=== PATIENT | male | born 1955 | race Caucasian/White ===

== ENCOUNTER → 2018-05-21 09:03 | Outpatient (CLI) | payer BC ==
--- NOTE | 2018-05-22 11:19 | ST ---
PATIENT:ADILENE RHOADES MEDICAL RECORD: [id number] SEX: M LOCATION:[facility] ORDER #: ADMISSION DATE: 05/21/18 AGE OF PATIENT: 63 REFERRING PHYSICIAN: INTERPRETING PHYSICIAN: SHERRI DIEGO MD DATE OF SERVICE: 05/21/2018 PROCEDURE: Nuclear stress test. INDICATIONS: Angina, shortness of breath, hypertension. He was exercised on standard Lexiscan protocol with 32 mCi of sestamibi injected at peak stress, 11 mCi used previously for rest images. FINDINGS: Gated SPECT reveals a preserved ejection fraction of 54%. However, there is decreased thickening and brightening throughout the inferior segments. SPECT imaging Cardiolite was used as myocardial perfusion agent. There is a fixed perfusion defect inferiorly. This includes the basal, mid, apical, and inferior segments. There is reversibility, however, in the lateral segments as well as basolateral and mid lateral segments. OVERALL IMPRESSION: This is an abnormal nuclear stress test, fixed perfusion defect inferiorly, reversibility laterally, does suggest the presence of hemodynamically significant coronary artery disease. We will proceed with coronary angiography as followup study. TRANSINT:[id number] Voice Confirmation ID: [id number] DOCUMENT ID: [id number] SHERRI DIEGO MD at 1119 CC: [id number] DICTATION DATE: 05/21/18 1611 SPA COORDINATOR: 05/22/18 0131 DEP CLI 05/21/18 [address] [id number] [place] [address]
== END | disposition home or self-care (01) ==
LOC: D.HCCARDIO 09:00
DX: R06.02 Shortness of breath (principal)

== ENCOUNTER → 2018-06-05 14:52 | Outpatient (CLI) | payer BC ==
[2018-06-01 08:18] VITALS: BMI 35.0
[~2018-06-05 14:52] MED LIST: ALBUTEROL SULF8.5 GM INH; BAYER CHEWABLE81 MG PO; BUTALB-APAP-CA1 EACH PO; CARAFATE1 G PO; CELEXA20 MG PO; CO Q-10400 MG PO; COLACE100 MG PO; COZAAR100 MG PO; CYCLOBENZAPRINE10 MG PO; CYMBALTA30 MG PO; FISH OIL 1,0001 CA1 PO; HCTZ25 MG PO; HYDROCODON-ACE1 EA10 PO; LIDODERM 5 %1 PATCH TRANSDERM; LIPITOR10 MG PO; LIPITOR20 MG PO; LYRICA50 MG PO; METOPROLOL TART25 MG PO; MOBIC7.5 MG PO; PLAVIX75 MG PO; PLEXUS BIO CLEANSE; PREVACID30 MG PO; TESTOSTERONE IM; ULTRAM50 MG PO; VITAMIN D5000 UNIT PO; VOLTAREN100 GM TOPICAL; [UNRECOGNIZED DRUG - OTHER]
== END | disposition home or self-care (01) ==
LOC: D.US 14:52
PROVIDERS: ATTEND Internal Medicine Cardiovascular Disease
DX: I65.29 Occlusion and stenosis of unspecified carotid artery (principal); I73.9 Peripheral vascular disease, unspecified

== ENCOUNTER 2018-06-12 07:30 | Inpatient (IN) | payer BC ==
[2018-06-08 14:18] LABS: BASOPHILS 0.5 % (0-2); EOSINOPHILS 5.3 % (0-7); HEMATOCRIT 47.8 % (42.0-54.0); HEMOGLOBIN 16.6 g/dL (13.5-17.5); IMMATURE GRANULOCYTES 0.3 % (0-5); LYMPHOCYTES 29.8 % (15-50); MCH 34.2 pg (26.0-34.0); MCHC 34.7 g/dL (31.0-37.0); MCV 98.4 fL (80.0-100.0); MONOCYTES 8.5 % (2-11); NEUTROPHILS 55.6 % (40-80); PLATELET COUNT 263 10x3/uL (130-400); RBC 4.86 10x6/uL (4.20-6.10); RDW 13.4 % (11.5-14.5); WBC 7.6 10x3/uL (4.8-10.8)
[2018-06-08 14:22] LABS: APPEARANCE CLEAR (CLEAR); COLOR YELLOW (YELLOW)
[2018-06-08 14:23] LABS: BILIRUBIN NEGATIVE (NEGATIVE); GLUCOSE NEGATIVE (NEGATIVE); KETONE NEGATIVE (NEGATIVE); NITRITE NEGATIVE (NEGATIVE); PROTEIN NEGATIVE (NEGATIVE); UROBILINOGEN NORMAL (NORMAL)
[2018-06-08 14:24] LABS: APTT 29.1 SECONDS (22.8-39.4); INR 1.05 (0.85-1.17); PROTIME 13.2 SECONDS (11.6-15.0)
[2018-06-08 14:31] LABS: ALBUMIN 3.4 g/dL (3.4-5.0); ANION GAP 11.3 mmol/L (8-16); BILIRUBIN - TOTAL 1.08 mg/dL (0.2-1.3); CALCIUM 8.5 mg/dL (8.5-10.1); CARBON DIOXIDE 30.2 mmol/L (21.0-32.0); CREATININE - SERUM 1.5 mg/dL (0.6-1.3); POTASSIUM - SERUM 4.5 mmol/L (3.5-5.1); PROTEIN - SERUM 7.1 g/dL (6.4-8.2); T4 THYROXIN - FREE 0.83 ng/dL (0.76-1.46); THYROID STIMULATING HORMONE 2.82 uIU/mL (0.36-3.74); URIC ACID 6.1 mg/dL (2.6-7.2)
[~2018-06-12] VITALS: Ht 172.7 cm; Wt 104.3 kg
[2018-06-14] VITALS (31 sets, daily range): BP systolic 105–141; BP diastolic 53–78; Ht 172.7 cm; Wt 104.3 kg
[2018-06-15] VITALS (26 sets, daily range): BP systolic 97–144; BP diastolic 57–84
[2018-06-15 06:24] LABS: HEMATOCRIT 39.7 % (42.0-54.0); HEMOGLOBIN 13.7 g/dL (13.5-17.5); MCH 33.6 pg (26.0-34.0); MCHC 34.5 g/dL (31.0-37.0); MCV 97.3 fL (80.0-100.0); MEAN PLATELET VOLUME 8.7 fL (7.4-10.4); RBC 4.08 10x6/uL (4.20-6.10); RDW 13.1 % (11.5-14.5); WBC 13.2 10x3/uL (4.8-10.8)
[2018-06-15 06:43] LABS: ALBUMIN 2.8 g/dL (3.4-5.0); ANION GAP 10.6 mmol/L (8-16); BILIRUBIN - TOTAL 1.78 mg/dL (0.2-1.3); CALCIUM 7.3 mg/dL (8.5-10.1); CARBON DIOXIDE 29.7 mmol/L (21.0-32.0); CREATININE - SERUM 1.3 mg/dL (0.6-1.3); POTASSIUM - SERUM 4.3 mmol/L (3.5-5.1); PROTEIN - SERUM 5.6 g/dL (6.4-8.2)
--- NOTE | 2018-06-15 15:09 | OP ---
PATIENT NAME: ADILENE RHOADES MEDICAL RECORD: [id number] :57 LOCATION:D.CVI D.CV05 ADMISSION DATE:06/14/18 SURGEON: PENG RUIZ MD DATE OF OPERATION: 06/14/2018 SURGEON: Peng Ruiz MD ANATOMICAL EMBALMER: Chuy Castillo. OPERATION PERFORMED: 1. Coronary artery bypass graft times 3 (left internal mammary artery to LAD, reverse saphenous vein graft from aorta to obtuse marginal, aorta to posterior descending artery). 2. Endoscopic saphenous vein harvest. PREOPERATIVE DIAGNOSIS: Coronary artery disease. POSTOPERATIVE DIAGNOSIS: Coronary artery disease. ANESTHESIA: General endotracheal anesthesia. ESTIMATED BLOOD LOSS: Total cardiopulmonary bypass with Cell Saver retransfusion. COMPLICATIONS: None. SPECIMENS: Left internal mammary artery lymph node for frozen section revealed reactive lymph node. CONDITION: Stable. DISPOSITION: CV ICU. OPERATIVE FINDINGS: 1. Transesophageal echocardiography with trace mitral regurgitation, 1+ pulmonary and tricuspid regurgitation, good contractility, moderate LVH, unchanged after cardiopulmonary bypass. 2. Good quality greater saphenous vein harvested endoscopically from the left leg due to history of right leg DVT. 3. Good quality internal mammary artery, somewhat thin walled without a well-developed muscularis layer, LAD 1.5 mm with severe disease, anastomosis and plaque. 4. Severe disease all vessels with anastomosis and plaque. 5. Obtuse marginal 2.0 mm with severe disease. 6. Posterior descending artery, 1.25 mm vessel. The right coronary artery was calcified throughout and no other sites for anastomosis despite this small posterior descending vessel. PROCEDURE INDICATION: Coronary artery disease. PROCEDURE IN DETAIL: The patient was brought to the operating suite. General anesthesia obtained. The patient was prepped and draped. Greater saphenous vein harvested in the left lower extremity utilizing endoscopic technique. Side branches were divided with electrocautery. The vessel was ligated proximally and distally removed. Side branches were tied. Leg was irrigated and closed in OPERATIVE REPORT [id number] ADILENE RHOADES 2 layers and wrapped in elastic wrap. Median sternotomy incision was made. Subcutaneous tissue was divided with electrocautery. Sternum was divided with a saw. Left hemisternum was elevated. Left pleural cavity was entered. Left internal mammary vein was taken as a pedicle graft. Sternal retractor was placed. Pericardium was opened. Heparin was given. Aorta was cannulated. Dual stage venous cannula was inserted. Activated clotting time was appropriately elevated. The internal mammary was clipped distally and made ready for anastomosis. The patient was placed on cardiopulmonary bypass. Sites for distal anastomoses were selected. The antegrade cardioplegic cannula was inserted. The patient's temperature was allowed to drift downward. Crossclamp was placed. Cardioplegia given antegrade and this was repeated at 15 to 20 minute intervals including down the completed vein grafts. Distal anastomoses were performed in standard technique. Proximal anastomosis with single cross-clamp technique. Aortic root de-aired. Crossclamp removed. Proximal anastomosis tied down. Vein graft was deaired and flow restored. The patient required several defibrillations and additional lidocaine 100 mg. Eventually, a sinus rhythm, was tachycardic, received some esmolol prior to weaning from cardiopulmonary bypass, but was stable. With the patient fully rewarmed, weaned from cardiopulmonary bypass and was stable. The patient was decannulated. The aortic annulus that was oversewn with pledgeted Prolene suture. Protamine was given. Thorough irrigation was undertaken. All grafts lay appropriately and hemostasis was ensured. Good Doppler signals were noted in the vein graft and in the internal mammary artery. Drains were placed in the mediastinum and left pleural cavity. Ventricular pacing wires were placed. Pericardial fat was loosely reapproximated in the midline. Left internal mammary harvest site was inspected for bleeding. Left chest evacuated and irrigated. Sternum was closed with wires. Fascia was closed, subcutaneous tissues was closed, skin was closed. Dermabond was placed. Needle and sponge counts were reported as correct and the patient was taken to ICU in stable condition. TRANSINT:[id number] Voice Confirmation ID: [id number] DOCUMENT ID: [id number] PENG RUIZ MD at 1509 CC: APOLINAR CUTLER MD and SHERRI DIEGO [id number] DICTATION DATE: 06/14/18 1336 PARACHUTE MARKER: 06/14/18 1618 ADM IN [place] [address] [place] [address]
[2018-06-16] VITALS (24 sets, daily range): BP systolic 90–116; BP diastolic 52–78
[2018-06-16 05:58] LABS: HEMATOCRIT 37.8 % (42.0-54.0); MCH 33.9 pg (26.0-34.0); MCHC 34.4 g/dL (31.0-37.0); MCV 98.4 fL (80.0-100.0); RBC 3.84 10x6/uL (4.20-6.10); RDW 13.1 % (11.5-14.5); WBC 13.1 10x3/uL (4.8-10.8)
[2018-06-16 06:15] LABS: ALBUMIN 2.7 g/dL (3.4-5.0); ANION GAP 11.5 mmol/L (8-16); BILIRUBIN - TOTAL 1.59 mg/dL (0.2-1.3); CALCIUM 7.6 mg/dL (8.5-10.1); CARBON DIOXIDE 27.8 mmol/L (21.0-32.0); CREATININE - SERUM 1.2 mg/dL (0.6-1.3); POTASSIUM - SERUM 4.3 mmol/L (3.5-5.1); PROTEIN - SERUM 5.7 g/dL (6.4-8.2)
[2018-06-17] VITALS (17 sets, daily range): BP systolic 97–122; BP diastolic 51–74
[2018-06-17 05:47] LABS: HEMATOCRIT 37.1 % (42.0-54.0); HEMOGLOBIN 12.8 g/dL (13.5-17.5); MCH 33.9 pg (26.0-34.0); MCHC 34.5 g/dL (31.0-37.0); MCV 98.1 fL (80.0-100.0); MEAN PLATELET VOLUME 8.9 fL (7.4-10.4); RBC 3.78 10x6/uL (4.20-6.10); RDW 12.8 % (11.5-14.5); WBC 12.1 10x3/uL (4.8-10.8)
[2018-06-17 06:33] LABS: ALBUMIN 2.7 g/dL (3.4-5.0); ANION GAP 13.7 mmol/L (8-16); BILIRUBIN - TOTAL 1.43 mg/dL (0.2-1.3); CARBON DIOXIDE 25.5 mmol/L (21.0-32.0); CREATININE - SERUM 1.2 mg/dL (0.6-1.3); POTASSIUM - SERUM 4.2 mmol/L (3.5-5.1); PROTEIN - SERUM 6.2 g/dL (6.4-8.2)
--- NOTE | 2018-06-17 10:39 | TEE ---
PATIENT:ADILENE RHOADES MEDICAL RECORD: [id number] LOCATION:[place] [address] AGE OF PATIENT: 63 ADMISSION DATE: 06/14/18 SEX: M REFERRING PHYSICIAN: INTERPRETING PHYSICIAN: SHIV GUAMAN MD TRANSESOPHAGEAL ECHOCARDIOGRAM Date: 06/14/18 ESTELA CHARGE Y INDICATIONS: CABG PREMEDICATIONS: PATIENT'S RESPONSE PROCEDURE DOPPLER MEASUREMENTS: LVIT LA PA RA LVOT RVOT Asc. Ao AV Gradient Peak AV Mean AV Area MV Gradient Peak MV Mean MV Area INTERPRETATION: LVd: 4.3 cm LVs: 2.7 cm Doppler: 2-D: COLOR FLOW DOPPLER NORMAL SALINE STUDY: MISCELLANOUS: DIAGNOSIS: PLAN: Knitting Machine Operator Helper:Arias Pereira Aqua Ammonia Operator: Arias OSEGUERA COMMENTS: DATE OF SERVICE: 06/14/2018 INTRAOPERATIVE ESTELA REPORT IN CABG Preoperatively, LV appears to be mildly globally hypo with LV function of 45% to 50%. Postoperatively, wall motion now appears to be entirely normal with good LV function of 55%. TRANSESOPHAGEAL ECHOCARDIOGRAM REPORT [id number] ADILENE RHOADES TRANSINT:[id number] Voice Confirmation ID: [id number] DOCUMENT ID: [id number] at 1039 CC: [id number] DICTATION DATE: 06/14/18 1514 FISH BIN TENDER: 06/14/18 1947 ADM IN [facility] [address] [place] [address]
[2018-06-17 22:02] LABS: MAGNESIUM - SERUM 2.2 mg/dL (1.8-2.4); POTASSIUM - SERUM 3.8 mmol/L (3.5-5.1)
[2018-06-18] VITALS (22 sets, daily range): BP systolic 92–126; BP diastolic 47–81
[2018-06-18 05:49] LABS: HEMATOCRIT 33.6 % (42.0-54.0); HEMOGLOBIN 11.5 g/dL (13.5-17.5); MCH 33.6 pg (26.0-34.0); MCHC 34.2 g/dL (31.0-37.0); MCV 98.2 fL (80.0-100.0); MEAN PLATELET VOLUME 9.2 fL (7.4-10.4); RBC 3.42 10x6/uL (4.20-6.10); RDW 13.2 % (11.5-14.5); WBC 8.7 10x3/uL (4.8-10.8)
[2018-06-18 05:59] LABS: ALBUMIN 2.3 g/dL (3.4-5.0); ANION GAP 11.3 mmol/L (8-16); BILIRUBIN - TOTAL 0.74 mg/dL (0.2-1.3); CALCIUM 7.9 mg/dL (8.5-10.1); CREATININE - SERUM 1.2 mg/dL (0.6-1.3); POTASSIUM - SERUM 4.3 mmol/L (3.5-5.1); PROTEIN - SERUM 5.8 g/dL (6.4-8.2)
--- NOTE | 2018-06-18 18:01 | MORECARE ---
CASE MANAGEMENT DISCHARGE SUMMARY PATIENT: ADILENE RHOADES UNIT: [id number] ADM DATE: 06/14/18 AGE: 63 : 57 SEX: M ROOM/BED: D[facility] AUTHOR: ATTILA,DOC PHYSICIAN: REFERRING PHYSICIAN: ZEB DELVALLE MD DATE OF SERVICE: 06/18/18 Discharge Plan Patient Name: ADILENE RHOADES Facility: [facility]:[place] : 1955 Planned Disposition: Home Anticipated Discharge Date: Discharge Date: Expected LOS: Initial Reviewer: [email or web address] Initial Review Date: 06/18/2018 Generated: 06/18/18 7:00 pm Comments DCP- Discharge Planning Updated by [email or web address]: Brandie Snell on 06/18/18 4:[address] Patient Name: ADILENE RHOADES Admission Status: Elective Accout number: [id number] Admission Date: 06-14-2018 : 1955 Admission Diagnosis:ATHSCL HEART DISEASE OF [place] CORONARY ARTERY W/O ANG Attending: ZEB DELVALLE Current LOS: 4 Anticipated DC Date: Planned Disposition: Home Primary Insurance: [employer] [facility] Discharge Planning Comments: CM met with patient and spouse at bedside. Patient states he lives at home with is spouse (JHOANA). He plans on returning to their home upon discharge. He states he feels safe at his home. He states he will have family drive him home upon discharge. He is requesting a walker for discharge. CM will continue to follow and assist as needed with discharge planning / needs. Risk Reduction Counselor: Brandie Snell DCPIA - Discharge Planning Initial Assessment Updated by [email or web address]: Brandie Snell on 06/18/18 5:57 pm * Is the patient Alert and Oriented? Yes * How many steps to enter\exit or inside your home? * PCP Tauth * Pharmacy [facility] [place] * Preadmission Environment Home with Family * ADLs Independent * Other Equipment LEG BRACE * List name and contact numbers for known caregivers / representatives who currently or will assist patient after discharge: JHOANA RHOADES - - [phone] * Verbal permission to speak to the caregivers and representatives has been obtained from the patient. N/A * Community resources currently utilized None * Additional services required to return to the preadmission environment? No * Can the patient safely return to the preadmission environment? Yes * Has this patient been hospitalized within the prior 30 days at any hospital? No Patient Name: ADILENE RHOADES Page [id number] at 1801 All edits/amendments must be made on the electronic document DICTATION DATE: 06/18/181799 RELAY ASSOCIATE: HARSHIL 06/18/181799 RPT#: [id number] DC DATE: STATUS: ADM IN [facility] [address] [place] [address] END OF REPORT
[2018-06-19] VITALS (24 sets, daily range): BP systolic 96–126; BP diastolic 47–69
[2018-06-19 07:01] LABS: HEMATOCRIT 34.3 % (42.0-54.0); HEMOGLOBIN 11.6 g/dL (13.5-17.5); MCH 33.5 pg (26.0-34.0); MCHC 33.8 g/dL (31.0-37.0); MCV 99.1 fL (80.0-100.0); MEAN PLATELET VOLUME 9.2 fL (7.4-10.4); RBC 3.46 10x6/uL (4.20-6.10); RDW 13.3 % (11.5-14.5); WBC 7.7 10x3/uL (4.8-10.8)
[2018-06-19 07:04] LABS: ALBUMIN 2.4 g/dL (3.4-5.0); BILIRUBIN - TOTAL 0.87 mg/dL (0.2-1.3); CALCIUM 8.2 mg/dL (8.5-10.1); CARBON DIOXIDE 25.8 mmol/L (21.0-32.0); CREATININE - SERUM 1.2 mg/dL (0.6-1.3); POTASSIUM - SERUM 3.8 mmol/L (3.5-5.1); PROTEIN - SERUM 6.2 g/dL (6.4-8.2)
[2018-06-20] VITALS (10 sets, daily range): BP systolic 89–123; BP diastolic 48–68
[2018-06-20] MEDS ORDERED: AMIODARONE HCL200 MG PO (15:37)
[2018-06-20] MEDS ORDERED: PLAVIX75 MG PO (15:37)
--- NOTE | 2018-06-20 17:44 | MORECARE ---
CASE MANAGEMENT DISCHARGE SUMMARY PATIENT: ADILENE RHOADES UNIT: [id number] ADM DATE: 06/14/18 AGE: 63 : 57 SEX: M ROOM/BED: D.[facility] AUTHOR: ATTILADOC PHYSICIAN: REFERRING PHYSICIAN: ZEB DELVALLE MD DATE OF SERVICE: 06/20/18 Discharge Plan Patient Name: ADILENE RHOADES Facility: [facility]:[place] : 1955 Planned Disposition: Home Anticipated Discharge Date: Discharge Date: Expected LOS: Initial Reviewer: [id number] Initial Review Date: 06/18/2018 Generated: 06/20/18 6:43 pm Comments DCP- Discharge Planning Updated by [email or web address]: Brandie Snell on 06/20/18 4:[address] Patient Name: ADILENE RHOADES Encounter No: [id number] : 1955 Primary Insurance: Total [employer] myhomemove Anticipated DC Date: Planned Disposition: Home External Planned Provider: : REBEKA EXPLAINED AND SERVED 06/20/18 @ 1725. CM WILL CALL OFFICE IN AM TO CHECK ON ORDER FOR WALKER. DCP follow-up note: Patient and family in agreement with discharge plan. No changes to plan. Case management will follow and assist as needed. Brandie Snell DCP- Discharge Planning Updated by [email or web address]: Brandie Snell on 06/18/18 4:[address] Patient Name: ADILENE RHOADES Admission Status: Elective Accout number: [id number] Admission Date: 06-14-2018 : 1955 Admission Diagnosis:ATHSCL HEART DISEASE OF [place] CORONARY ARTERY W/O ANG Attending: ZEB DELVALLE Current LOS: 4 Anticipated DC Date: Planned Disposition: Home Primary Insurance: [employer] Discharge Planning Comments: CM met with patient and spouse at bedside. Patient states he lives at home with is spouse (JHOANA). He plans on returning to their home upon discharge. He states he feels safe at his home. He states he will have family drive him home upon discharge. He is requesting a walker for discharge. CM will continue to follow and assist as needed with discharge planning / needs. Supervisor Shaving And Splitting: Brandie Snell DCPIA - Discharge Planning Initial Assessment Updated by [email or web address]: Brandie Snell on 06/18/18 5:57 pm * Is the patient Alert and Oriented? Yes * How many steps to enter\exit or inside your home? * PCP Tauth * Pharmacy [facility] [place] * Preadmission Environment Home with Family * ADLs Independent * Other Equipment LEG BRACE * List name and contact numbers for known caregivers / representatives who currently or will assist patient after discharge: JHOANA RHOADES - - [phone] * Verbal permission to speak to the caregivers and representatives has been obtained from the patient. N/A * Community resources currently utilized None * Additional services required to return to the preadmission environment? No * Can the patient safely return to the preadmission environment? Yes * Has this patient been hospitalized within the prior 30 days at any hospital? No Coverage Notice Reviewer: [id number] - Brandie Snell Notice Issued Date-Time: 06/20/2018 17:25 Notice Type: IM Discharge Notice Notice Delivered To: Patient Relationship to Patient: Self Rod Straightener Name: Delivery Method: HAND - Hand Delivered Sarah Days: Prior Verbal Notification: Recipient Understood Notice: Yes Recipient Signature: Yes Med Rec Note Co-signed by Attending: Coverage Notice Comment: Last DP export: 06/18/18 5:00 p Patient Name: ADILENE RHOADES Page 21241 at 1744 All edits/amendments must be made on the electronic document DICTATION DATE: 06/20/181742 RUBBER GOODS CUTTER FINISHER: HARSHIL 06/20/181742 RPT#: [id number] DC DATE: STATUS: ADM IN [facility] [address] [place] [address] END OF REPORT
--- NOTE | 2018-06-21 09:01 | MORECARE ---
CASE MANAGEMENT DISCHARGE SUMMARY PATIENT: ADILENE RHOADES UNIT: [id number] ADM DATE: 06/14/18 AGE: 63 : 57 SEX: M [facility] AUTHOR: ATTILA,DOC PHYSICIAN: REFERRING PHYSICIAN: ZEB DELVALLE MD DATE OF SERVICE: 06/21/18 Discharge Plan Patient Name: ADILENE RHOADES Facility: [facility]:[place] : 1955 Planned Disposition: Home Anticipated Discharge Date: Discharge Date: 06/20/2018 Expected LOS: Initial Reviewer: [id number] Initial Review Date: 06/18/2018 Generated: 06/21/18 10:01 am Comments DCP- Discharge Planning Updated by [email or web address]: Brandie Snell on 06/20/18 4:[address] Patient Name: ADILENE RHOADES Encounter No: [id number] : 1955 Primary Insurance: [employer] O[employer] Anticipated DC Date: Planned Disposition: Home External Planned Provider: : IMM EXPLAINED AND SERVED 06/20/18 @ 1725. CM WILL CALL OFFICE IN AM TO CHECK ON ORDER FOR WALKER. DCP follow-up note: Patient and family in agreement with discharge plan. No changes to plan. Case management will follow and assist as needed. Brandie Snell DCP- Discharge Planning Updated by [id number]: Brandie Snell on 06/18/18 4:[address] Patient Name: ADILENE RHOADES Admission Status: Elective Accout number: [id number] Admission Date: 06-14-2018 : 1955 Admission Diagnosis:ATHSCL HEART DISEASE OF [place] CORONARY ARTERY W/O ANG Attending: ZEB DELVALLE Current LOS: 4 Anticipated DC Date: Planned Disposition: Home Primary Insurance: [employer] Odim[employer] Discharge Planning Comments: CM met with patient and spouse at bedside. Patient states he lives at home with is spouse (JHOANA). He plans on returning to their home upon discharge. He states he feels safe at his home. He states he will have family drive him home upon discharge. He is requesting a walker for discharge. CM will continue to follow and assist as needed with discharge planning / needs. Drafter Civil Engineering: Brandie Snell DCPIA - Discharge Planning Initial Assessment Updated by [email or web address]: Brandie Snell on 06/18/18 5:57 pm * Is the patient Alert and Oriented? Yes * How many steps to enter\exit or inside your home? * PCP Tauth * Pharmacy [facility] [place] * Preadmission Environment Home with Family * ADLs Independent * Other Equipment LEG BRACE * List name and contact numbers for known caregivers / representatives who currently or will assist patient after discharge: JHOANA RHOADES - - [phone] * Verbal permission to speak to the caregivers and representatives has been obtained from the patient. N/A * Community resources currently utilized None * Additional services required to return to the preadmission environment? No * Can the patient safely return to the preadmission environment? Yes * Has this patient been hospitalized within the prior 30 days at any hospital? No Coverage Notice Reviewer: [id number] - Brandie Snell Notice Issued Date-Time: 06/20/2018 17:25 Notice Type: IM Discharge Notice Notice Delivered To: Patient Relationship to Patient: Self Egg And Spice Mixer Name: Delivery Method: HAND - Hand Delivered Sarah Days: Prior Verbal Notification: Recipient Understood Notice: Yes Recipient Signature: Yes Med Rec Note Co-signed by Attending: Coverage Notice Comment: Last DP export: 06/20/18 4:44 p Patient Name: ADILENE RHOADES Page 02941 at 0901 All edits/amendments must be made on the electronic document DICTATION DATE: 06/21/18900 COMPUTER REPAIR INSTRUCTOR: HARSHIL 06/21/18900 RPT#: [id number] DC DATE:06/20/18 STATUS: DIS IN [facility] [address] [place] [address] END OF REPORT
== END 2018-06-20 19:30 | disposition home or self-care (01) | DRG 236 ==
LOC: D.SDCHOLD 07:30 → D.CVICU 06-14 05:25 → D.SDCHOLD 06-14 07:30 → D.CVICU 06-14 09:52
PROVIDERS: Thoracic Surgery (Cardiothoracic Vascular Surgery); ADMIT Internal Medicine Cardiovascular Disease; ATTEND Internal Medicine Cardiovascular Disease
PROC: 021109W Bypass Coronary Artery, Two Arteries from Aorta with Autologous Venous Tissue, Open Approach (ICD-10-PCS; 2018-06-14)
PROC: 06BQ4ZZ Excision of Left Saphenous Vein, Percutaneous Endoscopic Approach (ICD-10-PCS; 2018-06-14)
PROC: 5A1221Z Performance of Cardiac Output, Continuous (ICD-10-PCS; 2018-06-14)
PROC: B24BZZ4 Ultrasonography of Heart with Aorta, Transesophageal (ICD-10-PCS; 2018-06-14)
PROC: 02100Z9 Bypass Coronary Artery, One Artery from Left Internal Mammary, Open Approach (ICD-10-PCS; principal; 2018-06-14 07:30)
DX: I25.119 Atherosclerotic heart disease of native coronary artery with unspecified angina pectoris (principal); M62.830 Muscle spasm of back; I48.91 Unspecified atrial fibrillation; R59.9 Enlarged lymph nodes, unspecified; I10 Essential (primary) hypertension; E11.9 Type 2 diabetes mellitus without complications; E78.5 Hyperlipidemia, unspecified

== ENCOUNTER 2018-06-26 11:42 | Inpatient (IN) | payer BC ==
[2018-06-26] VITALS (17 sets, daily range): BP systolic 105–139; BP diastolic 53–66; BMI 35.7
[~2018-06-26 11:42] MED LIST changes: +AMIODARONE HCL200 MG PO
[2018-06-26 12:11] LABS: HEMATOCRIT 35.1 % (42.0-54.0); HEMOGLOBIN 11.5 g/dL (13.5-17.5); MCH 32.8 pg (26.0-34.0); MCHC 32.8 g/dL (31.0-37.0); MEAN PLATELET VOLUME 10.2 fL (7.4-10.4); RBC 3.51 10x6/uL (4.20-6.10); RDW 12.8 % (11.5-14.5); WBC 7.8 10x3/uL (4.8-10.8)
[2018-06-26 12:13] LABS: PLATELET COUNT 52 10x3/uL (130-400)
[2018-06-26 12:24] LABS: ALBUMIN 2.7 g/dL (3.4-5.0); ANION GAP 12.2 mmol/L (8-16); BILIRUBIN - TOTAL 0.79 mg/dL (0.2-1.3); CALCIUM 8.5 mg/dL (8.5-10.1); CARBON DIOXIDE 29.1 mmol/L (21.0-32.0); CREATININE - SERUM 1.4 mg/dL (0.6-1.3); POTASSIUM - SERUM 4.3 mmol/L (3.5-5.1); PROTEIN - SERUM 6.5 g/dL (6.4-8.2)
[2018-06-26 12:45] LABS: PLATELET ESTIMATE DECREASED
[2018-06-26 15:21] LABS: INR 1.37 (0.85-1.17); PROTIME 16.3 SECONDS (11.6-15.0)
[2018-06-26 15:22] LABS: APTT 38.7 SECONDS (22.8-39.4)
[2018-06-26 15:27] LABS: ALBUMIN 2.7 g/dL (3.4-5.0); BILIRUBIN - DIRECT 0.2 mg/dL (0.00-0.30); BILIRUBIN - INDIRECT 0.5 mg/dL (0.00-1.00); BILIRUBIN - TOTAL 0.7 mg/dL (0.2-1.3); PROTEIN - SERUM 6.5 g/dL (6.4-8.2)
[2018-06-26 16:15] LABS: D-DIMER-QUANTITATIVE > 20.00 ug/mLFEU (0.20-0.54)
[2018-06-27] VITALS (25 sets, daily range): BP systolic 94–132; BP diastolic 46–68; BMI 34.6
[2018-06-27 06:51] LABS: BASOPHILS 0.3 % (0-2); EOSINOPHILS 2.5 % (0-7); HEMATOCRIT 32.6 % (42.0-54.0); HEMOGLOBIN 10.8 g/dL (13.5-17.5); IMMATURE GRANULOCYTES 0.5 % (0-5); LYMPHOCYTES 9.2 % (15-50); MCH 32.5 pg (26.0-34.0); MCHC 33.1 g/dL (31.0-37.0); MCV 98.2 fL (80.0-100.0); MEAN PLATELET VOLUME 10.3 fL (7.4-10.4); MONOCYTES 8.6 % (2-11); NEUTROPHILS 78.9 % (40-80); PLATELET COUNT 51 10x3/uL (130-400); RBC 3.32 10x6/uL (4.20-6.10); RDW 12.6 % (11.5-14.5); WBC 9.3 10x3/uL (4.8-10.8)
[2018-06-27 07:00] LABS: ANION GAP 11.2 mmol/L (8-16); CALCIUM 8.1 mg/dL (8.5-10.1); CARBON DIOXIDE 27.2 mmol/L (21.0-32.0); CREATININE - SERUM 1.3 mg/dL (0.6-1.3); POTASSIUM - SERUM 4.4 mmol/L (3.5-5.1)
[2018-06-27 08:06] LABS: INR 3.9 (0.85-1.17); PROTIME 37.4 SECONDS (11.6-15.0)
--- NOTE | 2018-06-27 12:44 | MORECARE ---
CASE MANAGEMENT DISCHARGE SUMMARY PATIENT: ADILENE RHOADES UNIT: [id number] ADM DATE: 06/26/18 AGE: 63 : 57 SEX: M ROOM/BED: [facility] AUTHOR: SILAS AIKEN PHYSICIAN: REFERRING PHYSICIAN: ZEB DELVALLE MD DATE OF SERVICE: 06/27/18 Discharge Plan Patient Name: ADILENE RHOADES [facility] [facility] 1955 Planned Disposition: Home Anticipated Discharge Date: Discharge Date: Expected LOS: Initial Reviewer: [email or web address] Initial Review Date: 06/26/2018 Generated: 06/27/18 1:44 pm Patient Name: ADILENE RHOADES Page 84701 at 1244 All edits/amendments must be made on the electronic document DICTATION DATE: 06/27/18 1244 FIRST LINE SUPERVISOR: HARSHIL 06/27/18 1244 RPT#: [id number] DC DATE: STATUS: ADM IN [facility] [address] [place] [address] END OF REPORT
--- NOTE | 2018-06-27 12:51 | MORECARE ---
CASE MANAGEMENT DISCHARGE SUMMARY PATIENT: ADILENE RHOADES UNIT: [id number] ADM DATE: 06/26/18 AGE: 63 : 57 SEX: M [facility] AUTHOR: SILAS AIKEN PHYSICIAN: REFERRING PHYSICIAN: ZEB DELVALLE MD DATE OF SERVICE: 06/27/18 Discharge Plan Patient Name: ADILENE RHOADES Facility: [facility]:[place] : 1955 Planned Disposition: Home Anticipated Discharge Date: Discharge Date: Expected LOS: Initial Reviewer: [email or web address] Initial Review Date: 06/26/2018 Generated: 06/27/18 1:51 pm DCPIA - Discharge Planning Initial Assessment Updated by [email or web address]: Brandie Snell on 06/27/18 12:46 pm * Is the patient Alert and Oriented? Yes * How many steps to enter\exit or inside your home? * PCP OMAYRA * Pharmacy [facility] * Preadmission Environment Home with Family * ADLs Independent * Other Equipment WALKER, W/C, SHOWER CHAIR, BEDSIDE COMMODE, ELEVATED TOILET SEAT, GRAB BARS IN BATHROOM * List name and contact numbers for known caregivers / representatives who currently or will assist patient after discharge: JHOANA RHOADES - [facility]- [phone] * Verbal permission to speak to the caregivers and representatives has been obtained from the patient. Yes * Community resources currently utilized None * Additional services required to return to the preadmission environment? No * Can the patient safely return to the preadmission environment? Yes * Has this patient been hospitalized within the prior 30 days at any hospital? Yes Last DP export: 06/27/18 11:44 am Patient Name: ADILENE RHOADES Page 10023 at 1251 All edits/amendments must be made on the electronic document DICTATION DATE: 06/27/18 1251 BAR STEWARD: HARSHIL 06/27/18 1251 RPT#: [id number] DC DATE: STATUS: ADM IN [facility] [address] [place] [address] END OF REPORT
--- NOTE | 2018-06-27 13:10 | MORECARE ---
CASE MANAGEMENT DISCHARGE SUMMARY PATIENT: ADILENE RHOADES UNIT: [id number] ADM DATE: 06/26/18 AGE: 63 : 57 SEX: M ROOM/BED: D.03 AUTHOR: ATTILA,DOC PHYSICIAN: REFERRING PHYSICIAN: ZEB DELVALLE MD DATE OF SERVICE: 06/27/18 Discharge Plan Patient Name: ADILENE RHOADES Facility: [facility]:[place] : 1955 Planned Disposition: Home Anticipated Discharge Date: Discharge Date: Expected LOS: Initial Reviewer: [id number] Initial Review Date: 06/26/2018 Generated: 06/27/18 2:09 pm Comments DCP- Discharge Planning Updated by [email or web address]: Brandie Snell on 06/27/18 12:[address] Patient Name: ADILENE RHOADES Admission Status: Elective Accout number: [id number] Admission Date: 06-26-2018 : 1955 Admission Diagnosis: Attending: ZEB DELVALLE Current LOS: 1 Anticipated DC Date: Planned Disposition: Home Primary [facility] Discharge Planning Comments: CM met with patient and spouse (Sangeetha) at bedside after explaining CM role and obtaining verbal consent. Patient lives at home with his Sangeetha and plans to return there upon discharge. Patient feels this would be a safe discharge. CM discussed availability / needs of home health and medical equipment. Patient denies any discharge needs at this time. Patient states he will have his drive him home upon discharge. CM will continue to follow and assist as needed with discharge planning / needs. Cash Application Representative: Brandie Snell DCPIA - Discharge Planning Initial Assessment Updated by [id number]: Brandie Snell on 06/27/18 12:46 pm * Is the patient Alert and Oriented? Yes * How many steps to enter\exit or inside your home? * PCP OMAYRA * Pharmacy [facility] * Preadmission Environment Home with Family * ADLs Independent * Other Equipment WALKER, W/C, SHOWER CHAIR, BEDSIDE COMMODE, ELEVATED TOILET SEAT, GRAB BARS IN BATHROOM * List name and contact numbers for known caregivers / representatives who currently or will assist patient after discharge: SANGEETHA RHOADES - - [phone] * Verbal permission to speak to the caregivers and representatives has been obtained from the patient. Yes * Community resources currently utilized None * Additional services required to return to the preadmission environment? No * Can the patient safely return to the preadmission environment? Yes * Has this patient been hospitalized within the prior 30 days at any hospital? Yes Last DP export: 06/27/18 11:51 am Patient Name: ADILENE RHOADES Page [id number] at 1310 All edits/amendments must be made on the electronic document DICTATION DATE: 06/27/18 1309 SAMPLE PROCESSOR: HARSHIL 06/27/18 1309 RPT#: [id number] DC DATE: STATUS: ADM IN [facility] [address] [place] [address] END OF REPORT
[2018-06-28] VITALS (24 sets, daily range): BP systolic 104–133; BP diastolic 49–73
[2018-06-28 05:56] LABS: HEMATOCRIT 35.4 % (42.0-54.0); HEMOGLOBIN 11.9 g/dL (13.5-17.5); MCH 33.1 pg (26.0-34.0); MCHC 33.6 g/dL (31.0-37.0); MCV 98.6 fL (80.0-100.0); MEAN PLATELET VOLUME 9.8 fL (7.4-10.4); RBC 3.59 10x6/uL (4.20-6.10); RDW 12.9 % (11.5-14.5); WBC 10.1 10x3/uL (4.8-10.8)
[2018-06-28 06:06] LABS: INR 3.19 (0.85-1.17); PROTIME 31.9 SECONDS (11.6-15.0)
[2018-06-28 06:13] LABS: ANION GAP 13.8 mmol/L (8-16); CALCIUM 8.4 mg/dL (8.5-10.1); CARBON DIOXIDE 26.3 mmol/L (21.0-32.0); CREATININE - SERUM 1.4 mg/dL (0.6-1.3); POTASSIUM - SERUM 4.1 mmol/L (3.5-5.1)
[2018-06-28 06:14] LABS: APTT 89.1 SECONDS (22.8-39.4)
[2018-06-28 09:17] LABS: ACLA - IGG AB <9 GPL U/mL (0-14); ACLA - IGM AB <9 MPL U/mL (0-12)
[2018-06-28 10:18] LABS: CEA 2.2 ng/mL (0.0-4.7); PSA - % FREE 27.1 % (()); PSA - FREE 0.19 ng/mL; PSA - TOTAL 0.7 ng/mL (0.0-4.0)
[2018-06-28 12:16] LABS: FOLATE (FOLIC ACID) - SERUM 13.7 ng/mL (>3.0)
[2018-06-29] VITALS (22 sets, daily range): BP systolic 90–138; BP diastolic 41–78
[2018-06-29 06:06] LABS: HEMATOCRIT 34.3 % (42.0-54.0); HEMOGLOBIN 11.5 g/dL (13.5-17.5); MCH 32.6 pg (26.0-34.0); MCHC 33.5 g/dL (31.0-37.0); MCV 97.2 fL (80.0-100.0); MEAN PLATELET VOLUME 11.1 fL (7.4-10.4); RBC 3.53 10x6/uL (4.20-6.10); RDW 12.8 % (11.5-14.5); WBC 7.9 10x3/uL (4.8-10.8)
[2018-06-29 06:20] LABS: INR 3.08 (0.85-1.17)
[2018-06-29 06:22] LABS: ANION GAP 12.1 mmol/L (8-16); CARBON DIOXIDE 25.1 mmol/L (21.0-32.0); CREATININE - SERUM 1.4 mg/dL (0.6-1.3); PLATELET COUNT 35 10x3/uL (130-400); POTASSIUM - SERUM 4.2 mmol/L (3.5-5.1)
[2018-06-29 07:03] LABS: PLATELET ESTIMATE DECREASED
[2018-06-30] VITALS (23 sets, daily range): BP systolic 94–134; BP diastolic 43–70
[2018-06-30 06:10] LABS: HEMATOCRIT 34.8 % (42.0-54.0); HEMOGLOBIN 11.5 g/dL (13.5-17.5); MCH 32.2 pg (26.0-34.0); MCV 97.5 fL (80.0-100.0); MEAN PLATELET VOLUME 11.8 fL (7.4-10.4); RBC 3.57 10x6/uL (4.20-6.10); RDW 12.6 % (11.5-14.5); WBC 7.5 10x3/uL (4.8-10.8)
[2018-06-30 06:39] LABS: ANION GAP 11.6 mmol/L (8-16); CALCIUM 8.1 mg/dL (8.5-10.1); CARBON DIOXIDE 26.7 mmol/L (21.0-32.0); CREATININE - SERUM 1.4 mg/dL (0.6-1.3); POTASSIUM - SERUM 4.3 mmol/L (3.5-5.1)
[2018-06-30 06:45] LABS: INR 3.44 (0.85-1.17); PROTIME 33.9 SECONDS (11.6-15.0)
[2018-06-30 07:22] LABS: APTT 103.6 SECONDS (22.8-39.4)
[2018-07-01] VITALS (16 sets, daily range): BP systolic 91–129; BP diastolic 41–70
[2018-07-01 06:04] LABS: ANION GAP 10.9 mmol/L (8-16); CALCIUM 7.8 mg/dL (8.5-10.1); CREATININE - SERUM 1.3 mg/dL (0.6-1.3); POTASSIUM - SERUM 3.9 mmol/L (3.5-5.1)
[2018-07-01 06:09] LABS: HEMATOCRIT 33.7 % (42.0-54.0); HEMOGLOBIN 11.3 g/dL (13.5-17.5); MCH 32.4 pg (26.0-34.0); MCHC 33.5 g/dL (31.0-37.0); MCV 96.6 fL (80.0-100.0); MEAN PLATELET VOLUME 10.9 fL (7.4-10.4); RBC 3.49 10x6/uL (4.20-6.10); RDW 12.7 % (11.5-14.5); WBC 6.6 10x3/uL (4.8-10.8)
[2018-07-01 06:19] LABS: INR 3.64 (0.85-1.17); PROTIME 35.4 SECONDS (11.6-15.0)
[2018-07-01 06:20] LABS: APTT 103.1 SECONDS (22.8-39.4)
[2018-07-02] VITALS (19 sets, daily range): BP systolic 98–142; BP diastolic 47–72
[2018-07-02 05:24] LABS: HEMATOCRIT 33.2 % (42.0-54.0); HEMOGLOBIN 11.2 g/dL (13.5-17.5); MCH 32.5 pg (26.0-34.0); MCHC 33.7 g/dL (31.0-37.0); MCV 96.2 fL (80.0-100.0); MEAN PLATELET VOLUME 10.2 fL (7.4-10.4); RBC 3.45 10x6/uL (4.20-6.10); RDW 12.5 % (11.5-14.5); WBC 6.6 10x3/uL (4.8-10.8)
[2018-07-02 05:42] LABS: INR 3.55 (0.85-1.17); PROTIME 34.8 SECONDS (11.6-15.0)
[2018-07-02 05:43] LABS: APTT 106.2 SECONDS (22.8-39.4)
[2018-07-02 05:48] LABS: ANION GAP 10.3 mmol/L (8-16); CALCIUM 8.2 mg/dL (8.5-10.1); CARBON DIOXIDE 27.8 mmol/L (21.0-32.0); CREATININE - SERUM 1.4 mg/dL (0.6-1.3); POTASSIUM - SERUM 4.1 mmol/L (3.5-5.1)
[2018-07-02 17:09] LABS: HEXAGONAL PHASE PHOS QNS sec (()); LUPUS - INTERPRETATION QNS (()); LUPUS - THROMBIN NEUT >150.0 sec (0.0-23.0); LUPUS - THROMBIN TIME 106.9 sec (0.0-23.0); LUPUS - THROMBIN TIME MIX >150.0 sec (0.0-23.0); LUPUS - dRVVT QNS sec (()); PTT-LA 114.2 sec (0.0-51.9); PTT-LA MIX 106.2 sec (0.0-48.9)
[2018-07-02 19:08] LABS: FACTOR II DNA ANALYSIS Negative (())
[2018-07-03] VITALS (23 sets, daily range): BP systolic 99–136; BP diastolic 52–86
[2018-07-03 05:19] LABS: BASOPHILS 0.4 % (0-2); EOSINOPHILS 3.9 % (0-7); HEMATOCRIT 33.3 % (42.0-54.0); HEMOGLOBIN 11.2 g/dL (13.5-17.5); IMMATURE GRANULOCYTES 0.3 % (0-5); MCH 32.2 pg (26.0-34.0); MCHC 33.6 g/dL (31.0-37.0); MCV 95.7 fL (80.0-100.0); MEAN PLATELET VOLUME 10.2 fL (7.4-10.4); MONOCYTES 9.5 % (2-11); NEUTROPHILS 67.9 % (40-80); RBC 3.48 10x6/uL (4.20-6.10); RDW 12.4 % (11.5-14.5); WBC 6.8 10x3/uL (4.8-10.8)
[2018-07-03 05:23] LABS: PLATELET COUNT 42 10x3/uL (130-400)
[2018-07-03 06:26] LABS: ALBUMIN 2.5 g/dL (3.4-5.0); ANION GAP 12.2 mmol/L (8-16); BILIRUBIN - TOTAL 0.82 mg/dL (0.2-1.3); CALCIUM 8.2 mg/dL (8.5-10.1); CARBON DIOXIDE 27.1 mmol/L (21.0-32.0); CREATININE - SERUM 1.2 mg/dL (0.6-1.3); POTASSIUM - SERUM 4.3 mmol/L (3.5-5.1); PROTEIN - SERUM 6.2 g/dL (6.4-8.2)
[2018-07-03 06:32] LABS: PLATELET ESTIMATE DECREASED
[2018-07-04] VITALS (24 sets, daily range): BP systolic 94–142; BP diastolic 48–71
[2018-07-04 05:04] LABS: ANION GAP 11.1 mmol/L (8-16); CREATININE - SERUM 1.3 mg/dL (0.6-1.3); POTASSIUM - SERUM 4.1 mmol/L (3.5-5.1)
[2018-07-04 06:36] LABS: BASOPHILS 0.5 % (0-2); EOSINOPHILS 5.4 % (0-7); HEMATOCRIT 33.5 % (42.0-54.0); HEMOGLOBIN 11.1 g/dL (13.5-17.5); IMMATURE GRANULOCYTES 0.5 % (0-5); LYMPHOCYTES 20.2 % (15-50); MCH 32.1 pg (26.0-34.0); MCHC 33.1 g/dL (31.0-37.0); MCV 96.8 fL (80.0-100.0); MEAN PLATELET VOLUME 10.3 fL (7.4-10.4); MONOCYTES 11.9 % (2-11); NEUTROPHILS 61.5 % (40-80); RBC 3.46 10x6/uL (4.20-6.10); RDW 12.6 % (11.5-14.5); WBC 6.5 10x3/uL (4.8-10.8)
[2018-07-04 06:37] LABS: PLATELET COUNT 47 10x3/uL (130-400)
[2018-07-05] VITALS (25 sets, daily range): BP systolic 111–141; BP diastolic 59–78
[2018-07-05 05:00] LABS: HEMATOCRIT 34.9 % (42.0-54.0); HEMOGLOBIN 11.7 g/dL (13.5-17.5); MCHC 33.5 g/dL (31.0-37.0); MCV 95.4 fL (80.0-100.0); MEAN PLATELET VOLUME 10.4 fL (7.4-10.4); RBC 3.66 10x6/uL (4.20-6.10); RDW 12.3 % (11.5-14.5); WBC 6.1 10x3/uL (4.8-10.8)
[2018-07-05 05:08] LABS: ANION GAP 10.1 mmol/L (8-16); CALCIUM 8.2 mg/dL (8.5-10.1); CREATININE - SERUM 1.3 mg/dL (0.6-1.3); POTASSIUM - SERUM 4.1 mmol/L (3.5-5.1)
[2018-07-06] VITALS (24 sets, daily range): BP systolic 98–141; BP diastolic 57–75
[2018-07-06 06:32] LABS: ANION GAP 13.6 mmol/L (8-16); CALCIUM 8.1 mg/dL (8.5-10.1); CARBON DIOXIDE 23.4 mmol/L (21.0-32.0); CREATININE - SERUM 1.2 mg/dL (0.6-1.3)
[2018-07-06 07:02] LABS: HEMATOCRIT 35.4 % (42.0-54.0); HEMOGLOBIN 12.2 g/dL (13.5-17.5); MCHC 34.5 g/dL (31.0-37.0); MCV 95.7 fL (80.0-100.0); MEAN PLATELET VOLUME 10.1 fL (7.4-10.4); PLATELET COUNT 62 10x3/uL (130-400); RDW 12.7 % (11.5-14.5)
[2018-07-06 09:13] LABS: PLATELET ESTIMATE DECREASED
--- NOTE | 2018-07-06 15:12 | EC ---
PATIENT:ADILENE RHOADES DATE OF SERVICE: 06/26/18 SEX: M MEDICAL RECORD: [id number] DATE OF : [birth year] LOCATION:[place] [address] AGE OF PATIENT: 63 ADMISSION DATE: 06/26/18 REFERRING PHYSICIAN: INTERPRETING PHYSICIAN: SHERRI PEREIRA MD ECHOCARDIOGRAM REPORT ECHO CHARGES 4 ECHO COMPLETE Date: 06/26/18 CLINICAL DIAGNOSIS: SOB EDEMA RECENT CABG ECHOCARDIOGRAPHIC MEASUREMENTS (adult normal given) AC root (d.<3.7cm) 3.2 cm LV Septum d (<1.2 cm> 1.2 cm Valve Excursion 1.6 cm LV Septum (systole) 1.9 cm Left Atria (s.<4.0cm> 3.9 cm LVPW d(<1.2cm) 1.6 cm RV (d.<2.3cm) 5.1 cm LVPW (sytole) 2.0 cm LV diastole(<5.6CM) 4.9 cm MV E-F(>70mm/sec) cm LV systole 3.0 cm LVOT Diameter 1.7 cm MV exc.(>10mm) 1.4 cm Est.ejection fraction (50-75%) % DOPPLER: LVIT cm/sec A 74.30cm/sec E 115 cm/sec LA cm/sec RVSP 27 mmHg LVOT 142 cm/sec AOP1/2T m/s Asc. Ao 171 cm/sec RVOT cm/sec RA cm/sec PA cm/sec AV Gradient Peak 11.67mmHg AV Mean 4.63 mmHg AV Area 2.1 cm MV Gradient Peak 6.52 mmHg MV Mean 1.73 mmHg MV Area cm COMMENTS: Performance Reporter: Bud OLIVAREZ Corrugator Operator Helper: 1 Dr. Pereira TAPE# PACS Pericardial Effusion N DATE OF SERVICE: 06/26/2018 ECHOCARDIOGRAM DATE OF SERVICE: 06/26/2018 FINDINGS: 1. Left ventricular chamber size is within normal limits. Left ventricular systolic function is normal. Overall ejection fraction estimated at 50%. 2. Left atrium, right atrium, and right ventricular chamber sizes are within ECHOCARDIOGRAM REPORT [id number] ADILENE RHOADES normal limits. 3. Valvular structures have normal structure and motion. 4. Doppler interrogation reveals mild mitral regurgitation, mild tricuspid regurgitation. No other valvular insufficiency or stenosis. Pulmonary systolic pressure is estimated at 27 mmHg. 5. No evidence of pericardial effusion or left ventricular thrombus. TRANSINT:[id number] Voice Confirmation ID: [id number] DOCUMENT ID: [id number] SHERRI PEREIRA MD at 1512 CC: [id number] DICTATION DATE: 06/27/18 0847 PLANT UTILITIES ENGINEER: 06/27/18 1005 ADM IN [place] [id number] [place] [id number]
[2018-07-07] VITALS (23 sets, daily range): BP systolic 92–138; BP diastolic 57–84
[2018-07-07 05:32] LABS: HEMATOCRIT 36.4 % (42.0-54.0); HEMOGLOBIN 12.3 g/dL (13.5-17.5); MCH 31.9 pg (26.0-34.0); MCHC 33.8 g/dL (31.0-37.0); MCV 94.5 fL (80.0-100.0); MEAN PLATELET VOLUME 10.3 fL (7.4-10.4); RBC 3.85 10x6/uL (4.20-6.10); RDW 12.3 % (11.5-14.5); WBC 6.5 10x3/uL (4.8-10.8)
[2018-07-07 05:43] LABS: ANION GAP 11.2 mmol/L (8-16); CALCIUM 8.2 mg/dL (8.5-10.1); CARBON DIOXIDE 25.8 mmol/L (21.0-32.0); CREATININE - SERUM 1.2 mg/dL (0.6-1.3)
[2018-07-07 17:50] LABS: MAGNESIUM - SERUM 1.8 mg/dL (1.8-2.4); POTASSIUM - SERUM 4.1 mmol/L (3.5-5.1)
[2018-07-08] VITALS (14 sets, daily range): BP systolic 94–156; BP diastolic 58–80
[2018-07-08 05:48] LABS: HEMATOCRIT 36.7 % (42.0-54.0); HEMOGLOBIN 12.7 g/dL (13.5-17.5); MCH 32.2 pg (26.0-34.0); MCHC 34.6 g/dL (31.0-37.0); MCV 93.1 fL (80.0-100.0); MEAN PLATELET VOLUME 9.9 fL (7.4-10.4); RBC 3.94 10x6/uL (4.20-6.10); RDW 12.3 % (11.5-14.5)
[2018-07-08 06:07] LABS: ANION GAP 10.6 mmol/L (8-16); CALCIUM 8.5 mg/dL (8.5-10.1); CARBON DIOXIDE 27.3 mmol/L (21.0-32.0); CREATININE - SERUM 1.2 mg/dL (0.6-1.3); POTASSIUM - SERUM 3.9 mmol/L (3.5-5.1)
[2018-07-09] VITALS (16 sets, daily range): BP systolic 101–145; BP diastolic 60–79
[2018-07-09 04:57] LABS: HEMATOCRIT 36.3 % (42.0-54.0); HEMOGLOBIN 12.4 g/dL (13.5-17.5); MCHC 34.2 g/dL (31.0-37.0); MCV 93.8 fL (80.0-100.0); MEAN PLATELET VOLUME 10.1 fL (7.4-10.4); RBC 3.87 10x6/uL (4.20-6.10); RDW 12.4 % (11.5-14.5); WBC 6.6 10x3/uL (4.8-10.8)
[2018-07-09 05:15] LABS: ALBUMIN 2.6 g/dL (3.4-5.0); ANION GAP 12.5 mmol/L (8-16); BILIRUBIN - TOTAL 0.95 mg/dL (0.2-1.3); CALCIUM 8.8 mg/dL (8.5-10.1); CARBON DIOXIDE 26.1 mmol/L (21.0-32.0); CREATININE - SERUM 1.2 mg/dL (0.6-1.3); POTASSIUM - SERUM 4.6 mmol/L (3.5-5.1); PROTEIN - SERUM 6.5 g/dL (6.4-8.2)
[2018-07-09 18:07] LABS: LUPUS - INTERPRETATION QNS (()); LUPUS - THROMBIN TIME QNS sec (()); LUPUS - dRVVT 168.7 sec (0.0-47.0); LUPUS - dRVVT CONFIRMATION 1.1 ratio (0.8-1.2); PTT-LA QNS sec (())
[2018-07-10] VITALS (7 sets, daily range): BP systolic 99–128; BP diastolic 68–83
[2018-07-10 08:36] LABS: BASOPHILS 0.5 % (0-2); EOSINOPHILS 8.8 % (0-7); HEMATOCRIT 38.8 % (42.0-54.0); HEMOGLOBIN 13.3 g/dL (13.5-17.5); IMMATURE GRANULOCYTES 0.5 % (0-5); LYMPHOCYTES 18.5 % (15-50); MCH 32.3 pg (26.0-34.0); MCHC 34.3 g/dL (31.0-37.0); MCV 94.2 fL (80.0-100.0); MEAN PLATELET VOLUME 9.7 fL (7.4-10.4); MONOCYTES 6.5 % (2-11); NEUTROPHILS 65.2 % (40-80); PLATELET COUNT 106 10x3/uL (130-400); RBC 4.12 10x6/uL (4.20-6.10); RDW 12.4 % (11.5-14.5); WBC 6.2 10x3/uL (4.8-10.8)
[2018-07-10 08:46] LABS: ANION GAP 12.2 mmol/L (8-16); BILIRUBIN - TOTAL 0.82 mg/dL (0.2-1.3); CALCIUM 8.7 mg/dL (8.5-10.1); CARBON DIOXIDE 27.6 mmol/L (21.0-32.0); CREATININE - SERUM 1.4 mg/dL (0.6-1.3); POTASSIUM - SERUM 4.8 mmol/L (3.5-5.1); PROTEIN - SERUM 7.2 g/dL (6.4-8.2)
[2018-07-10] MEDS ORDERED: ELIQUIS5 MG PO (09:15)
--- NOTE | 2018-07-10 22:58 | MORECARE ---
CASE MANAGEMENT DISCHARGE SUMMARY PATIENT: ADILENE RHOADES UNIT: [id number] ADM DATE: 06/26/18 AGE: 63 : [birth year] SEX: M [facility]BED: [facility] AUTHOR: ATTILA,DOC PHYSICIAN: REFERRING PHYSICIAN: ZEB DELVALLE MD DATE OF SERVICE: 07/10/18 Discharge Plan Patient Name: ADILENE RHOADES Facility: [facility]:[place] : 1955 Planned Disposition: Home Anticipated Discharge Date: Discharge Date: 07/10/2018 Expected LOS: Initial Reviewer: [email or web address] Initial Review Date: 06/26/2018 Generated: 07/10/18 11:58 pm Comments DCP- Discharge Planning Updated by [email or web address]: Brandie Snell on 07/10/18 9:[address] Patient Name: ADILENE RHOADES Encounter No: [id number] : 1955 Primary Insurance: [employer] Anticipated DC Date: Planned Disposition: Home External Planned Provider: : DCP follow-up note: Patient and family in agreement with discharge plan. No changes to plan. Case management will follow and assist as needed. Brandie Snell DCP- Discharge Planning Updated by [email or web address]: Brandie Snell on 06/27/18 12:[address] Patient Name: ADILENE RHOADES Admission Status: Elective Accout number: [id number] Admission Date: 06-26-2018 : 1955 Admission Diagnosis: Attending: ZEB DELVALLE Current LOS: 1 Anticipated DC Date: Planned Disposition: Home Primary Insurance: [facility] Discharge Planning Comments: CM met with patient and spouse (Sangeetha) at bedside after explaining CM role and obtaining verbal consent. Patient lives at home with his Sangeetha and plans to return there upon discharge. Patient feels this would be a safe discharge. CM discussed availability / needs of home health and medical equipment. Patient denies any discharge needs at this time. Patient states he will have his drive him home upon discharge. CM will continue to follow and assist as needed with discharge planning / needs. Material Analyst: Brandie Snell DCPIA - Discharge Planning Initial Assessment Updated by [email or web address]: Brandie Snell on 06/27/18 12:46 pm * Is the patient Alert and Oriented? Yes * How many steps to enter\exit or inside your home? * PCP OMAYRA * Pharmacy [facility] * Preadmission Environment Home with Family * ADLs Independent * Other Equipment WALKER, W/C, SHOWER CHAIR, BEDSIDE COMMODE, ELEVATED TOILET SEAT, GRAB BARS IN BATHROOM * List name and contact numbers for known caregivers / representatives who currently or will assist patient after discharge: SANGEETHA ROHADES - - [phone] * Verbal permission to speak to the caregivers and representatives has been obtained from the patient. Yes * Community resources currently utilized None * Additional services required to return to the preadmission environment? No * Can the patient safely return to the preadmission environment? Yes * Has this patient been hospitalized within the prior 30 days at any hospital? Yes Last DP export: 06/27/18 12:09 pm Patient Name: ADILENE RHOADES Page 70335 at 2258 All edits/amendments must be made on the electronic document DICTATION DATE: 07/10/182256 FINISH REMOVER: HARSHIL 07/10/182256 RPT#: [id number] DC DATE:07/10/18 STATUS: DIS IN [facility] [address] [place] [address] END OF REPORT
--- NOTE | 2018-07-11 14:39 | EC ---
PATIENT:ADILENE RHOADES DATE OF SERVICE: 06/26/18 SEX: M MEDICAL RECORD: [id number] DATE OF : [birth year] LOCATION:[place] [address] AGE OF PATIENT: 63 ADMISSION DATE: 06/26/18 REFERRING PHYSICIAN: INTERPRETING PHYSICIAN: SHERRI PEREIRA MD ECHOCARDIOGRAM REPORT ECHO CHARGES 5 ECHO LIMITED Date: 07/09/18 CLINICAL DIAGNOSIS: POST CABG/RECENT AFIB ECHOCARDIOGRAPHIC MEASUREMENTS (adult normal given) AC root (d.<3.7cm) 3.2 cm LV Septum d (<1.2 cm> 1.2 cm Valve Excursion 1.6 cm LV Septum (systole) 1.9 cm Left Atria (s.<4.0cm> 3.1 cm LVPW d(<1.2cm) 1.6 cm RV (d.<2.3cm) 4.5 cm LVPW (sytole) 2.0 cm LV diastole(<5.6CM) 4.0 cm MV E-F(>70mm/sec) cm LV systole 3.0 cm LVOT Diameter 1.7 cm MV exc.(>10mm) 1.4 cm Est.ejection fraction (50-75%) % DOPPLER: LVIT cm/sec A 74.30cm/sec E 115 cm/sec LA cm/sec RVSP 19 mmHg LVOT 142 cm/sec AOP1/2T m/s Asc. Ao 171 cm/sec RVOT cm/sec RA cm/sec PA cm/sec AV Gradient Peak 11.67mmHg AV Mean 4.63 mmHg AV Area 2.1 cm MV Gradient Peak 6.52 mmHg MV Mean 1.73 mmHg MV Area cm COMMENTS: Hadoop Analyst: Bud OLIVAREZ Clinical Educator: 1 Dr. Pereira TAPE# PACS Pericardial Effusion N DATE OF SERVICE: 07/09/2018 FINDINGS: 1. Left ventricular chamber size is within normal limits. Left ventricular systolic function is normal. Overall ejection fraction is estimated at 55%. 2. Left atrium is within normal limits at 3.1 cm. Right atrium and right ventricular chamber sizes are with upper limits of normal. 3. Valvular structures have normal structure and motion. 4. Doppler interrogation reveals trace mitral regurgitation. No other valvular insufficiency or stenosis. ECHOCARDIOGRAM REPORT [id number] ADILENE RHOADES 5. No evidence of pericardial effusion or left ventricular thrombus. 6. No evidence of left atrial or right atrial thrombus. TRANSINT:[id number] Voice Confirmation ID: [id number] DOCUMENT ID: [id number] SHERRI PEREIRA MD at 1439 CC: [id number] DICTATION DATE: 07/09/18 1529 EQUAL EMPLOYMENT OPPORTUNITY OFFICER: 07/09/18 2245 DIS IN 07/10/18 [place] [id number] [place] [address]
== END 2018-07-10 15:50 | disposition home or self-care (01) | DRG 813 ==
LOC: D.LAB 11:42 → D.CVICU 14:29 → D.LAB 14:40 → D.CVICU 14:41
PROVIDERS: Internal Medicine Hematology & Oncology; Thoracic Surgery (Cardiothoracic Vascular Surgery); ADMIT Internal Medicine Cardiovascular Disease
PROC: 05HY33Z Insertion of Infusion Device into Upper Vein, Percutaneous Approach (ICD-10-PCS; principal; 2018-07-02)
DX: D75.82 Heparin induced thrombocytopenia (HIT) (principal); I26.99 Other pulmonary embolism without acute cor pulmonale; I82.4Z2 Acute embolism and thrombosis of unspecified deep veins of left distal lower extremity; I25.10 Atherosclerotic heart disease of native coronary artery without angina pectoris; E11.9 Type 2 diabetes mellitus without complications; I10 Essential (primary) hypertension; K21.9 Gastro-esophageal reflux disease without esophagitis; I48.91 Unspecified atrial fibrillation; Z15.89 Genetic susceptibility to other disease

== ENCOUNTER → 2018-10-04 10:27 | Outpatient (CLI) | payer BC ==
[2018-06-27 16:26] VITALS: BMI 34.6
[~2018-10-04 10:27] MED LIST changes: +ELIQUIS5 MG PO
== END | disposition home or self-care (01) ==
LOC: D.LABREF 10:27
PROVIDERS: ATTEND Orthopaedic Surgery
DX: M17.11 Unilateral primary osteoarthritis, right knee (principal); Z11.8 Encounter for screening for other infectious and parasitic diseases

== ENCOUNTER 2018-10-05 13:22 | Inpatient (IN) | payer BC ==
[~2018-10-05] VITALS: Ht 172.7 cm; Wt 98.9 kg
[2018-11-07 09:24] LABS: BASOPHILS 0.5 % (0-2); EOSINOPHILS 1.8 % (0-7); HEMATOCRIT 47.4 % (42.0-54.0); HEMOGLOBIN 16.1 g/dL (13.5-17.5); IMMATURE GRANULOCYTES 0.3 % (0-5); LYMPHOCYTES 34.3 % (15-50); MCV 88.4 fL (80.0-100.0); MONOCYTES 11.2 % (2-11); NEUTROPHILS 51.9 % (40-80); PLATELET COUNT 262 10x3/uL (130-400); RBC 5.36 10x6/uL (4.20-6.10); RDW 14.8 % (11.5-14.5); WBC 7.9 10x3/uL (4.8-10.8)
[2018-11-07 09:34] LABS: ANION GAP 11.7 mmol/L (8-16); CALCIUM 9.1 mg/dL (8.5-10.1); CARBON DIOXIDE 29.9 mmol/L (21.0-32.0); CREATININE - SERUM 1.4 mg/dL (0.6-1.3); POTASSIUM - SERUM 3.6 mmol/L (3.5-5.1)
[2018-11-07 09:36] LABS: APPEARANCE CLEAR (CLEAR); BACTERIA FEW /hpf (NONE SEEN); BILIRUBIN NEGATIVE (NEGATIVE); COLOR YELLOW (YELLOW); EPITHELIAL CELLS OCC /hpf (0-5); GLUCOSE NEGATIVE (NEGATIVE); KETONE NEGATIVE (NEGATIVE); NITRITE NEGATIVE (NEGATIVE); PROTEIN NEGATIVE (NEGATIVE); RED CELLS - URINE OCC /hpf (0-5); SPECIFIC GRAVITY 1.015 (1.005-1.020); UROBILINOGEN NORMAL (NORMAL); WHITE CELLS - URINE RARE /hpf (0-5)
[2018-11-07 09:45] LABS: INR 1.16 (0.85-1.17); PROTIME 14.3 SECONDS (11.6-15.0)
[2018-11-07] MEDS ORDERED: VITAMIN D31000 UNI2 PO (10:11)
[2018-11-07] MEDS ORDERED: ULTRAM50 MG PO (10:12)
[2018-11-07] MEDS ORDERED: ALBUTEROL SULF8.5 GM INH (10:13)
[2018-11-07] MEDS ORDERED: LOVENOX30 MG/0.3 SC (10:16)
[2018-11-07] MEDS ORDERED: HYDROCHLOROTHIA25 MG PO (10:40)
[2018-11-07] MEDS ORDERED: LIPITOR10 MG PO (10:40)
[2018-11-07] MEDS ORDERED: ARIXTRA10 MG/0.8 SC (10:41)
[2018-11-13] VITALS (12 sets, daily range): BP systolic 85–137; BP diastolic 49–77; BMI 33.2
[2018-11-13] MEDS ORDERED: ARIXTRA10 MG/0.8 SC (10:39)
[2018-11-13] MEDS ORDERED: CYCLOBENZAPRINE10 MG PO (16:13)
--- NOTE | 2018-11-13 16:32 | OP ---
PATIENT NAME: ADILENE RHOADES MEDICAL RECORD: [id number] :[birth year] LOCATION:[address] ADMISSION DATE:11/13/18 SURGEON: NATALIO IBRAHIM DO DATE OF OPERATION: 11/13/2018 PROCEDURE PERFORMED: Right total knee arthroplasty. PREOPERATIVE DIAGNOSIS: Right knee osteoarthritis with severe valgus deformity. POSTOPERATIVE DIAGNOSIS: Right knee osteoarthritis with severe valgus deformity. INDICATIONS: Mr. Rhoades is a 63-year-old male who has had increasing deformity noted in his bilateral knees, right worse than the left. He said that he has been noticing it going on for some time and it got to the point where he can hardly walk without problems. He is tired of it affecting activities of daily living and was aware of the risks including infection, bleeding, damage to nerves and vessels, need for further surgery, blood clots, and even and he signed the consent. SURGEON: Natalio Ibrahim DO DESCRIPTION OF PROCEDURE: The patient received a block by anesthesia in preoperative area and taken to the operative suite, given 2 grams of Ancef and 80 mg gentamicin. The patient was sedated and LMA was placed. Right lower extremity was prepped and draped in sterile fashion. Timeout was performed. Everyone was in agreeance with the correct side, site, patient, and procedure. Incision was then marked out, covered in Ioban. Careful dissection was made down to the capsule itself with a 10-blade scalpel and then a fresh 10-blade was used to do a medial parapatellar approach to the knee. The patella was then everted. The severe osteophytes were taken off at that time. The patella and patella was milled down. The femur was then exposed and the intramedullary canal was entered and the distal femur was then cut. Once the distal femur was cut, the tibia was exposed and the tibia was cut off to the lateral side. Had a severe deformity and severe loss on the lateral tibial plateau. This was cut and then the menisci were removed as the knee was brought to extension and the osteophytes were removed at that time as well. The lateral collateral ligament had to be released as well to balance it somewhat evenly. The knee was flexed. The femur was measured to be 70. The 4-in-1 cutting block was used to cut and then the PS bone conserving block was used to recut. This was cut and the trial was put on. Lug holes were drilled prior to trial was on and the tibial tray and poly were floated in. Once that was completed, the rotation was marked and the patella was drilled and then the tibia was exposed and measured to be a 75. This was drilled and punched and then the cement was mixed. Tibia was irrigated and the cement was put into the tibia and on the implant, impacted in place. Excess cement was removed. The femur was then impacted on. Poly was put in between and brought to extension. The patella was then put in place as well and cemented, excess cement was removed. While the cement dried, the knee was irrigated. We then trialed up to a 20 poly as his medial side was very lax, getting full extension and having medial side constrained, it did have an endpoint, but did have some laxity with valgus stress, but did not open up severely with the 20 posterior stabilized bearing and this was locked into place. Once it was locked into place, the knee was irrigated again. Any bleeding was coagulated with the Aquamantys. Tobramycin and vancomycin powder as well as the Carmen was placed in the wound. The capsule was then closed with OPERATIVE REPORT [id number] ADILENE RHOADES ISAIAH #2 Ethibond in qoqllo-cb-dhvzd fashion and #1 pop-offs. The skin was then closed with 2-0 Vicryl inverted interrupted fashion. ZipLine placed on the knee. Adaptic, 4 x 4s, ABD, Webril, Nolan wrap were then placed on the knee. ADA hose stocking placed up to the knee. The patient was awakened and taken to recovery in stable condition. BLOOD LOSS: Approximately 200 mL. COMPLICATIONS: None. TRANSINT:[id number] Voice Confirmation ID: [id number] DOCUMENT ID: [id number] NATALIO IBRAHIM DO at 1632 CC: [id number] DICTATION DATE: 11/13/18 1437 TEMPLATE INSPECTOR: 11/13/18 1536 ADM IN [place] [id number] [place] [address]
[2018-11-14] VITALS: BP 115/57
[2018-11-14 06:13] LABS: HEMATOCRIT 37.3 % (42.0-54.0); HEMOGLOBIN 12.3 g/dL (13.5-17.5); MCH 29.4 pg (26.0-34.0); MCV 89.2 fL (80.0-100.0); MEAN PLATELET VOLUME 8.9 fL (7.4-10.4); PLATELET COUNT 228 10x3/uL (130-400); RBC 4.18 10x6/uL (4.20-6.10); RDW 14.7 % (11.5-14.5); WBC 15.2 10x3/uL (4.8-10.8)
[2018-11-14 08:30] VITALS: BP 126/70
[2018-11-14 10:32] LABS: ALBUMIN 2.8 g/dL (3.4-5.0); ANION GAP 12.6 mmol/L (8-16); BILIRUBIN - TOTAL 1.1 mg/dL (0.2-1.3); CALCIUM 8.2 mg/dL (8.5-10.1); CREATININE - SERUM 1.7 mg/dL (0.6-1.3); POTASSIUM - SERUM 4.6 mmol/L (3.5-5.1); PROTEIN - SERUM 6.1 g/dL (6.4-8.2)
[2018-11-14 12:45] VITALS: BP 121/54
[2018-11-14 14:49] VITALS: Ht 172.7 cm; Wt 98.9 kg
[2018-11-14 16:00] VITALS: BP 120/81
[2018-11-14 20:00] VITALS: BP 126/71
[2018-11-15 04:00] VITALS: BP 118/64
[2018-11-15 06:05] LABS: BASOPHILS 0.2 % (0-2); EOSINOPHILS 1.1 % (0-7); HEMATOCRIT 31.6 % (42.0-54.0); HEMOGLOBIN 10.4 g/dL (13.5-17.5); IMMATURE GRANULOCYTES 0.4 % (0-5); LYMPHOCYTES 18.4 % (15-50); MCH 29.2 pg (26.0-34.0); MCHC 32.9 g/dL (31.0-37.0); MCV 88.8 fL (80.0-100.0); MEAN PLATELET VOLUME 8.7 fL (7.4-10.4); MONOCYTES 12.9 % (2-11); PLATELET COUNT 204 10x3/uL (130-400); RBC 3.56 10x6/uL (4.20-6.10); RDW 14.9 % (11.5-14.5); WBC 12.9 10x3/uL (4.8-10.8)
[2018-11-15 06:28] LABS: ALBUMIN 2.7 g/dL (3.4-5.0); ANION GAP 11.1 mmol/L (8-16); BILIRUBIN - TOTAL 1.28 mg/dL (0.2-1.3); CARBON DIOXIDE 28.3 mmol/L (21.0-32.0); POTASSIUM - SERUM 4.4 mmol/L (3.5-5.1); PROTEIN - SERUM 6.1 g/dL (6.4-8.2)
[2018-11-15 06:29] LABS: CREATININE - SERUM 1.2 mg/dL (0.6-1.3)
[2018-11-15 08:38] VITALS: BP 119/62
[2018-11-15 09:02] LABS: % SATURATION 8 % (15-55); IRON 22 ug/dl (35-150); TOTAL IRON BIND CAPACITY 247 ug/dl (260-445); UNSAT IRON BIND CAPACITY 225 ug/dl (150-375)
[2018-11-15 11:58] VITALS: BP 96/59
--- NOTE | 2018-11-15 14:05 | MORECARE ---
CASE MANAGEMENT DISCHARGE SUMMARY PATIENT: ADILENE RHOADES ISAIAH UNIT: [id number] ADM DATE: 11/13/18 AGE: 63 : 57 SEX: M ROOM/BED: D.2214 AUTHOR: SILAS AIKEN PHYSICIAN: REFERRING PHYSICIAN: APOLINAR IBRAHIM DO DATE OF SERVICE: 11/15/18 Discharge Plan Patient Name: ADILENE RHOADES [facility] [facility] 1955 Planned Disposition: Inpatient Rehab Anticipated Discharge Date: Discharge Date: Expected LOS: Initial Reviewer: [email or web address] Initial Review Date: 11/13/2018 Generated: 11/15/18 3:05 pm DCPIA - Discharge Planning Initial Assessment Updated by [email or web address]: Piedad Sifuentes on 11/15/18 2:04 pm * Is the patient Alert and Oriented? Yes * How many steps to enter\exit or inside your home? * PCP ADAM * Pharmacy [facility] * Preadmission Environment Home with Family * ADLs Independent * Equipment Bedside Commode Cane Rolling Walker Shower Chair Walker Wheelchair * List name and contact numbers for known caregivers / representatives who currently or will assist patient after discharge: JHOANA ( ) [phone] * Verbal permission to speak to the caregivers and representatives has been obtained from the patient. Yes * Community resources currently utilized None * Additional services required to return to the preadmission environment? Yes * Can the patient safely return to the preadmission environment? No * Has this patient been hospitalized within the prior 30 days at any hospital? No Patient Name: ADILENE RHOADES Page 20670 at 1405 All edits/amendments must be made on the electronic document DICTATION DATE: 11/15/18 140 FIRE SERVICES PLUMBER: HARSHIL 11/15/18 1405 RPT#: [id number] DC DATE: STATUS: ADM IN [facility] [address] [place] [address] END OF REPORT
--- NOTE | 2018-11-15 14:22 | MORECARE ---
CASE MANAGEMENT DISCHARGE SUMMARY PATIENT: ADILENE RHOADES ISAIAH UNIT: [id number] ADM DATE: 11/13/18 AGE: 63 : 57 SEX: M ROOM/BED: D.2214 AUTHOR: SILAS AIKEN PHYSICIAN: REFERRING PHYSICIAN: APOLINAR IBRAHIM DO DATE OF SERVICE: 11/15/18 Discharge Plan Patient Name: ADILENE RHOADES Facility: [facility]:[place] : 1955 Planned Disposition: Inpatient Rehab Anticipated Discharge Date: Discharge Date: Expected LOS: Initial Reviewer: [email or web address] Initial Review Date: 11/13/2018 Generated: 11/15/18 3:22 pm Comments DCP- Discharge Planning Updated by [email or web address]: Piedad Sifuentes on 11/15/18 1:[address] Patient Name: ADILENE RHOADES Admission Status: Elective Accout number: [id number] Admission Date: 11-13-2018 : 1955 Admission Diagnosis:UNILATERAL PRIMARY OSTEOARTHRITIS, RIGHT Attending: APOLINAR IBRAHIM Current LOS: 2 Anticipated DC Date: Planned Disposition: Inpatient Rehab Primary Insurance: [employer] [facility] Discharge Planning Comments: CM met with patient to complete initial dc planning assessment. CM educated patient on the CM role and verbal consent given by patient to complete assessment. Patient lives at home with his where he is independent with his care. At discharge patient would like to go to inpatient rehab at [facility], this is where his works. CM discussed home health, rehab services, and medical equipment. Patient has a walker, wheelchair, shower chair, BSC at home. He had a CPM, but did not work and the [employer] will deliver another one when he is discharged. Patient denied known discharge needs at this time. CM will continue to follow and will assist as needed with dc plans/needs. Alum Operator: Piedad Sifuentes DCPIA - Discharge Planning Initial Assessment Updated by [email or web address]: Piedad Sifuentes on 11/15/18 2:04 pm * Is the patient Alert and Oriented? Yes * How many steps to enter\exit or inside your home? * PCP ADAM * Pharmacy [facility] * Preadmission Environment Home with Family * ADLs Independent * Equipment Bedside Commode Cane Rolling Walker Shower Chair Walker Wheelchair * List name and contact numbers for known caregivers / representatives who currently or will assist patient after discharge: JHOANA ( ) [phone] * Verbal permission to speak to the caregivers and representatives has been obtained from the patient. Yes * Community resources currently utilized None * Additional services required to return to the preadmission environment? Yes * Can the patient safely return to the preadmission environment? No * Has this patient been hospitalized within the prior 30 days at any hospital? No Last DP export: 11/15/18 1:05 p Patient Name: ADILENE RHOADES Page 01462 at 1422 All edits/amendments must be made on the electronic document DICTATION DATE: 11/15/181421 COMMUNITY RESOURCE OFFICER: HARSHIL 11/15/181421 RPT#: [id number] DC DATE: STATUS: ADM IN [facility] [address] [place] [address] END OF REPORT
[2018-11-15 16:34] VITALS: BP 119/68
[2018-11-15 20:00] VITALS: BP 110/54
[2018-11-16] VITALS: BP 136/64
[2018-11-16 04:00] VITALS: BP 110/59
[2018-11-16 06:47] LABS: ALBUMIN 2.6 g/dL (3.4-5.0); ANION GAP 9.7 mmol/L (8-16); BILIRUBIN - TOTAL 1.47 mg/dL (0.2-1.3); CALCIUM 8.3 mg/dL (8.5-10.1); CARBON DIOXIDE 31.3 mmol/L (21.0-32.0); CREATININE - SERUM 1.4 mg/dL (0.6-1.3); PROTEIN - SERUM 6.6 g/dL (6.4-8.2)
[2018-11-16 07:22] LABS: BASOPHILS 0.2 % (0-2); EOSINOPHILS 1.6 % (0-7); HEMATOCRIT 32.4 % (42.0-54.0); HEMOGLOBIN 10.6 g/dL (13.5-17.5); IMMATURE GRANULOCYTES 0.5 % (0-5); MCH 29.3 pg (26.0-34.0); MCHC 32.7 g/dL (31.0-37.0); MCV 89.5 fL (80.0-100.0); MEAN PLATELET VOLUME 8.9 fL (7.4-10.4); MONOCYTES 10.6 % (2-11); NEUTROPHILS 68.1 % (40-80); PLATELET COUNT 218 10x3/uL (130-400); RBC 3.62 10x6/uL (4.20-6.10); WBC 13.5 10x3/uL (4.8-10.8)
[2018-11-16 08:44] VITALS: BP 114/62
[2018-11-16 13:32] VITALS: BP 113/65
--- NOTE | 2018-11-16 13:51 | MORECARE ---
CASE MANAGEMENT DISCHARGE SUMMARY PATIENT: ADILENE RHOADES ISAIAH UNIT: [id number] ADM DATE: 11/13/18 AGE: 63 : 57 SEX: M ROOM/BED: D.2214 AUTHOR: ATTILA,DOC PHYSICIAN: REFERRING PHYSICIAN: APOLINAR IBRAHIM DO DATE OF SERVICE: 11/16/18 Discharge Plan Patient Name: ADILENE RHOADES Facility: [facility]:[place] : 1955 Planned Disposition: Inpatient Rehab Anticipated Discharge Date: Discharge Date: Expected LOS: Initial Reviewer: [email or web address] Initial Review Date: 11/13/2018 Generated: 11/16/18 2:51 pm Comments DCP- Discharge Planning Updated by [email or web address]: Piedad Sifuentes on 11/16/18 12:[address] SENT UPDATED CLINCIALS TO [place] DCP- Discharge Planning Updated by [email or web address]: Piedad Sifuentes on 11/15/18 1:[address] Patient Name: ADILENE RHOADES Admission Status: Elective Accout number: [id number] Admission Date: 11-13-2018 : 1955 Admission Diagnosis:UNILATERAL PRIMARY OSTEOARTHRITIS, RIGHT Attending: APOLINAR IBRAHIM Current LOS: 2 Anticipated DC Date: Planned Disposition: Inpatient Rehab Primary Insurance: [employer] [facility] Discharge Planning Comments: CM met with patient to complete initial dc planning assessment. CM educated patient on the CM role and verbal consent given by patient to complete assessment. Patient lives at home with his where he is independent with his care. At discharge patient would like to go to inpatient rehab at [facility], this is where his works. CM discussed home health, rehab services, and medical equipment. Patient has a walker, wheelchair, shower chair, BSC at home. He had a CPM, but did not work and the [employer] will deliver another one when he is discharged. Patient denied known discharge needs at this time. CM will continue to follow and will assist as needed with dc plans/needs. Dude Wrangler: Piedad Sifuentes DCPIA - Discharge Planning Initial Assessment Updated by [email or web address]: Piedad Sifuentes on 11/15/18 2:04 pm * Is the patient Alert and Oriented? Yes * How many steps to enter\exit or inside your home? * PCP ADAM * Pharmacy [facility] * Preadmission Environment Home with Family * ADLs Independent * Equipment Bedside Commode Cane Rolling Walker Shower Chair Walker Wheelchair * List name and contact numbers for known caregivers / representatives who currently or will assist patient after discharge: JHOANA ( ) [phone] * Verbal permission to speak to the caregivers and representatives has been obtained from the patient. Yes * Community resources currently utilized None * Additional services required to return to the preadmission environment? Yes * Can the patient safely return to the preadmission environment? No * Has this patient been hospitalized within the prior 30 days at any hospital? No Last DP export: 11/15/18 1:22 p Patient Name: ADILENE RHOADES Page 25402 at 1351 All edits/amendments must be made on the electronic document DICTATION DATE: 11/16/18 1351 APPLICATION SUPPORT: HARSHIL 11/16/18 1351 RPT#: [id number] DC DATE: STATUS: ADM IN [facility] [address] [place] [address] END OF REPORT
[2018-11-16 17:25] VITALS: BP 119/68
[2018-11-16 20:00] VITALS: BP 109/59
[2018-11-17 04:50] VITALS: BP 100/50
[2018-11-17 05:43] LABS: BASOPHILS 0.4 % (0-2); EOSINOPHILS 3.2 % (0-7); HEMATOCRIT 30.4 % (42.0-54.0); HEMOGLOBIN 10.2 g/dL (13.5-17.5); IMMATURE GRANULOCYTES 0.7 % (0-5); LYMPHOCYTES 18.3 % (15-50); MCH 29.8 pg (26.0-34.0); MCHC 33.6 g/dL (31.0-37.0); MCV 88.9 fL (80.0-100.0); MEAN PLATELET VOLUME 8.9 fL (7.4-10.4); MONOCYTES 11.2 % (2-11); NEUTROPHILS 66.2 % (40-80); PLATELET COUNT 235 10x3/uL (130-400); RBC 3.42 10x6/uL (4.20-6.10); RDW 14.7 % (11.5-14.5); WBC 11.3 10x3/uL (4.8-10.8)
[2018-11-17 06:00] LABS: ALBUMIN 2.3 g/dL (3.4-5.0); ANION GAP 9.4 mmol/L (8-16); BILIRUBIN - TOTAL 1.26 mg/dL (0.2-1.3); CALCIUM 8.3 mg/dL (8.5-10.1); CARBON DIOXIDE 30.3 mmol/L (21.0-32.0); CREATININE - SERUM 1.3 mg/dL (0.6-1.3); POTASSIUM - SERUM 3.7 mmol/L (3.5-5.1); PROTEIN - SERUM 6.6 g/dL (6.4-8.2)
[2018-11-17 08:59] VITALS: BP 95/62
[2018-11-17 14:37] VITALS: BP 119/63
[2018-11-17 16:49] VITALS: BP 158/90
[2018-11-17 19:50] VITALS: BP 112/65
[2018-11-18] VITALS: BP 102/63
[2018-11-18 04:00] VITALS: BP 123/58
[2018-11-18 06:28] LABS: BASOPHILS 0.3 % (0-2); EOSINOPHILS 3.2 % (0-7); HEMATOCRIT 30.8 % (42.0-54.0); HEMOGLOBIN 10.1 g/dL (13.5-17.5); IMMATURE GRANULOCYTES 0.7 % (0-5); LYMPHOCYTES 19.4 % (15-50); MCH 29.2 pg (26.0-34.0); MCHC 32.8 g/dL (31.0-37.0); MEAN PLATELET VOLUME 8.9 fL (7.4-10.4); MONOCYTES 12.4 % (2-11); PLATELET COUNT 245 10x3/uL (130-400); RBC 3.46 10x6/uL (4.20-6.10); RDW 14.7 % (11.5-14.5); WBC 9.5 10x3/uL (4.8-10.8)
[2018-11-18 07:10] LABS: ALBUMIN 2.3 g/dL (3.4-5.0); ANION GAP 8.5 mmol/L (8-16); BILIRUBIN - TOTAL 1.87 mg/dL (0.2-1.3); CALCIUM 8.5 mg/dL (8.5-10.1); CARBON DIOXIDE 31.1 mmol/L (21.0-32.0); CREATININE - SERUM 1.2 mg/dL (0.6-1.3); POTASSIUM - SERUM 3.6 mmol/L (3.5-5.1); PROTEIN - SERUM 6.5 g/dL (6.4-8.2)
[2018-11-18 07:14] VITALS: BP 116/57
[2018-11-18 12:43] VITALS: BP 106/60
[2018-11-18 18:26] VITALS: BP 129/68
[2018-11-18 20:00] VITALS: BP 113/62
[2018-11-19] VITALS: BP 142/63
[2018-11-19 04:00] VITALS: BP 116/60
[2018-11-19 06:15] LABS: BASOPHILS 0.3 % (0-2); EOSINOPHILS 2.2 % (0-7); HEMOGLOBIN 9.7 g/dL (13.5-17.5); IMMATURE GRANULOCYTES 0.7 % (0-5); LYMPHOCYTES 22.4 % (15-50); MCHC 32.3 g/dL (31.0-37.0); MCV 89.8 fL (80.0-100.0); MEAN PLATELET VOLUME 9.1 fL (7.4-10.4); NEUTROPHILS 65.4 % (40-80); PLATELET COUNT 256 10x3/uL (130-400); RBC 3.34 10x6/uL (4.20-6.10); RDW 14.8 % (11.5-14.5); WBC 10.7 10x3/uL (4.8-10.8)
[2018-11-19 06:40] LABS: ALBUMIN 2.3 g/dL (3.4-5.0); ANION GAP 9.5 mmol/L (8-16); BILIRUBIN - TOTAL 1.77 mg/dL (0.2-1.3); CALCIUM 8.6 mg/dL (8.5-10.1); CARBON DIOXIDE 30.1 mmol/L (21.0-32.0); CREATININE - SERUM 1.2 mg/dL (0.6-1.3); POTASSIUM - SERUM 3.6 mmol/L (3.5-5.1); PROTEIN - SERUM 6.5 g/dL (6.4-8.2)
[2018-11-19 08:46] VITALS: BP 125/71
[2018-11-19 13:03] VITALS: BP 114/77
[2018-11-19 17:41] VITALS: BP 106/63
[2018-11-19 21:17] VITALS: BP 114/65
[2018-11-20 00:17] VITALS: BP 103/51
[2018-11-20 04:42] VITALS: BP 122/64
[2018-11-20 06:08] LABS: ALBUMIN 2.5 g/dL (3.4-5.0); ANION GAP 11.2 mmol/L (8-16); BILIRUBIN - TOTAL 1.99 mg/dL (0.2-1.3); CALCIUM 8.2 mg/dL (8.5-10.1); CARBON DIOXIDE 29.7 mmol/L (21.0-32.0); CREATININE - SERUM 1.3 mg/dL (0.6-1.3); POTASSIUM - SERUM 3.9 mmol/L (3.5-5.1); PROTEIN - SERUM 6.1 g/dL (6.4-8.2)
[2018-11-20 06:19] LABS: BASOPHILS 0.4 % (0-2); EOSINOPHILS 2.9 % (0-7); HEMATOCRIT 31.1 % (42.0-54.0); HEMOGLOBIN 10.2 g/dL (13.5-17.5); IMMATURE GRANULOCYTES 0.8 % (0-5); LYMPHOCYTES 24.3 % (15-50); MCH 29.4 pg (26.0-34.0); MCHC 32.8 g/dL (31.0-37.0); MCV 89.6 fL (80.0-100.0); MEAN PLATELET VOLUME 9.1 fL (7.4-10.4); MONOCYTES 10.1 % (2-11); NEUTROPHILS 61.5 % (40-80); PLATELET COUNT 298 10x3/uL (130-400); RBC 3.47 10x6/uL (4.20-6.10); WBC 10.2 10x3/uL (4.8-10.8)
[2018-11-20 08:06] VITALS: BP 128/55
[2018-11-20] MEDS ORDERED: oxyCODONE IR PO (10:28)
--- NOTE | 2018-11-20 11:46 | MORECARE ---
CASE MANAGEMENT DISCHARGE SUMMARY PATIENT: ADILENE RHOADES ISAIAH UNIT: [id number] ADM DATE: 11/13/18 AGE: 63 : 57 SEX: M ROOM/BED: D.2214 AUTHOR: ATTILADOC PHYSICIAN: REFERRING PHYSICIAN: APOLINAR IBRAHIM DO DATE OF SERVICE: 11/20/18 Discharge Plan Patient Name: ADILENE RHOADES Facility: [facility]:[place] : 1955 Planned Disposition: Inpatient Rehab Anticipated Discharge Date: Discharge Date: Expected LOS: Initial Reviewer: [email or web address] Initial Review Date: 11/13/2018 Generated: 11/20/18 12:46 pm Comments DCP- Discharge Planning Updated by [id number]: Piedad Sifuentes on 11/20/18 10:[address] PATIENT WILL BE DISCHARGING TO INPATIENT REHAB AT [facility] I SPOKE WITH DARIO. HIS WILL BE TRANSPORTING HIM TO [place]. NILAM HAS ALREADY SPOKEN TO HIS . CM WILL CONTINUE TO FOLLOW AND ASSIST NEEDED DCP- Discharge Planning Updated by [email or web address]: Piedad Sifuentes on 11/16/18 12:[address] SENT UPDATED CLINCIALS TO [place] DCP- Discharge Planning Updated by [email or web address]: Piedad Sifuentes on 11/15/18 1:[address] Patient Name: ADILENE RHOADES Admission Status: Elective Accout number: [id number] Admission Date: 11-13-2018 : 1955 Admission Diagnosis:UNILATERAL PRIMARY OSTEOARTHRITIS, RIGHT Attending: APOLINAR IBRAHIM Current LOS: 2 Anticipated DC Date: Planned Disposition: Inpatient Rehab Primary Insurance: [employer] [facility] Discharge Planning Comments: CM met with patient to complete initial dc planning assessment. CM educated patient on the CM role and verbal consent given by patient to complete assessment. Patient lives at home with his where he is independent with his care. At discharge patient would like to go to inpatient rehab at [facility], this is where his works. CM discussed home health, rehab services, and medical equipment. Patient has a walker, wheelchair, shower chair, BSC at home. He had a CPM, but did not work and the DME company will deliver another one when he is discharged. Patient denied known discharge needs at this time. CM will continue to follow and will assist as needed with dc plans/needs. Bass Guitar Teacher: Piedad Sifuentes DCPIA - Discharge Planning Initial Assessment Updated by [email or web address]: Piedad Sifuentes on 11/15/18 2:04 pm * Is the patient Alert and Oriented? Yes * How many steps to enter\exit or inside your home? * PCP [place] * Pharmacy [facility] * Preadmission Environment Home with Family * ADLs Independent * Equipment Bedside Commode Cane Rolling Walker Shower Chair Walker Wheelchair * List name and contact numbers for known caregivers / representatives who currently or will assist patient after discharge: JHOANA ( ) [phone] * Verbal permission to speak to the caregivers and representatives has been obtained from the patient. Yes * Community resources currently utilized None * Additional services required to return to the preadmission environment? Yes * Can the patient safely return to the preadmission environment? No * Has this patient been hospitalized within the prior 30 days at any hospital? No Last DP export: 11/16/18 12:51 p Patient Name: ADILENE RHOADES Page 81164 at 1146 All edits/amendments must be made on the electronic document DICTATION DATE: 11/20/181144 CPR INSTRUCTOR: HARSHIL 11/20/181144 RPT#: [id number] DC DATE: STATUS: ADM IN [facility] [address] [place] [address] END OF REPORT
--- NOTE | 2018-11-20 12:01 | MORECARE ---
CASE MANAGEMENT DISCHARGE SUMMARY PATIENT: ADILENE RHOADES ISAIHA UNIT: [id number] ADM DATE: 11/13/18 AGE: 63 : 57 SEX: M ROOM/BED: D.2214 AUTHOR: ATTILADOC PHYSICIAN: REFERRING PHYSICIAN: APOLINAR IBRAHIM DO DATE OF SERVICE: 11/20/18 Discharge Plan Patient Name: ADILENE RHOADES Facility: [facility]:[place] : 1955 Planned Disposition: Inpatient Rehab Anticipated Discharge Date: Discharge Date: Expected LOS: Initial Reviewer: [email or web address] Initial Review Date: 11/13/2018 Generated: 11/20/18 1:00 pm Comments DCP- Discharge Planning Updated by [email or web address]: Piedad Sifuentes on 11/20/18 10:[address] PATIENT WILL BE DISCHARGING TO INPATIENT REHAB AT [facility] I SPOKE WITH DARIO. HIS WILL BE TRANSPORTING HIM TO [facility]. NILAM HAS ALREADY SPOKEN TO HIS . CM WILL CONTINUE TO FOLLOW AND ASSIST NEEDED DCP- Discharge Planning Updated by [email or web address]: Piedad Sifuentes on 11/16/18 12:[address] SENT UPDATED CLINCIALS TO [facility] DCP- Discharge Planning Updated by [email or web address]: Piedad Sifuentes on 11/15/18 1:[address] Patient Name: ADILENE RHOADES Admission Status: Elective Accout number: [id number] Admission Date: 11-13-2018 : 1955 Admission Diagnosis:UNILATERAL PRIMARY OSTEOARTHRITIS, RIGHT Attending: APOLINAR IBRAHIM Current LOS: 2 Anticipated DC Date: Planned Disposition: Inpatient Rehab Primary Insurance: [employer] [facility] Discharge Planning Comments: CM met with patient to complete initial dc planning assessment. CM educated patient on the CM role and verbal consent given by patient to complete assessment. Patient lives at home with his where he is independent with his care. At discharge patient would like to go to inpatient rehab at [facility], this is where his works. CM discussed home health, rehab services, and medical equipment. Patient has a walker, wheelchair, shower chair, BSC at home. He had a CPM, but did not work and the DME company will deliver another one when he is discharged. Patient denied known discharge needs at this time. CM will continue to follow and will assist as needed with dc plans/needs. Tile Burner: Piedad Sifuentes DCPIA - Discharge Planning Initial Assessment Updated by [email or web address]: Piedad Sifuentes on 11/15/18 2:04 pm * Is the patient Alert and Oriented? Yes * How many steps to enter\exit or inside your home? * PCP [facility] * Pharmacy [facility] * Preadmission Environment Home with Family * ADLs Independent * Equipment Bedside Commode Cane Rolling Walker Shower Chair Walker Wheelchair * List name and contact numbers for known caregivers / representatives who currently or will assist patient after discharge: JHOANA ( ) [phone] * Verbal permission to speak to the caregivers and representatives has been obtained from the patient. Yes * Community resources currently utilized None * Additional services required to return to the preadmission environment? Yes * Can the patient safely return to the preadmission environment? No * Has this patient been hospitalized within the prior 30 days at any hospital? No Last DP export: 11/20/18 10:46 a Patient Name: ADILENE RHOADES Page 13599 at 1201 All edits/amendments must be made on the electronic document DICTATION DATE: 11/20/18 1200 TRANSITION MANAGER: HARSHIL 11/20/18 1200 RPT#: [id number] DC DATE: STATUS: ADM IN [facility] [address] [place] [address] END OF REPORT
--- NOTE | 2018-11-24 12:02 | MORECARE ---
CASE MANAGEMENT DISCHARGE SUMMARY PATIENT: ADILENE RHOADES ISAIAH UNIT: [id number] ADM DATE: 11/13/18 AGE: 63 : 57 SEX: M ROOM/BED: D.2214 AUTHOR: ATTILADOC PHYSICIAN: REFERRING PHYSICIAN: APOLINAR IBRAHIM DO DATE OF SERVICE: 11/24/18 Discharge Plan Patient Name: ADILENE RHOADES Facility: [facility]:[place] : 1955 Planned Disposition: Inpatient Rehab Anticipated Discharge Date: Discharge Date: 11/20/2018 Expected LOS: Initial Reviewer: [email or web address] Initial Review Date: 11/13/2018 Generated: 11/24/18 1:02 pm Comments DCP- Discharge Planning Updated by [email or web address]: Piedad Sifuentes on 11/20/18 10:[address] PATIENT WILL BE DISCHARGING TO INPATIENT REHAB AT [facility] I SPOKE WITH DARIO. HIS WILL BE TRANSPORTING HIM TO [facility]. NILAM HAS ALREADY SPOKEN TO HIS . CM WILL CONTINUE TO FOLLOW AND ASSIST NEEDED DCP- Discharge Planning Updated by [email or web address]: Piedad Sifuentes on 11/16/18 12:[address] SENT UPDATED CLINCIALS TO [facility] DCP- Discharge Planning Updated by [email or web address]: Piedad Sifuentes on 11/15/18 1:[address] Patient Name: ADILENE RHOADES Admission Status: Elective Accout number: [id number] Admission Date: 11-13-2018 : 1955 Admission Diagnosis:UNILATERAL PRIMARY OSTEOARTHRITIS, RIGHT Attending: APOLINAR IBRAHIM Current LOS: 2 Anticipated DC Date: Planned Disposition: Inpatient Rehab Primary Insurance: [employer] [facility] Discharge Planning Comments: CM met with patient to complete initial dc planning assessment. CM educated patient on the CM role and verbal consent given by patient to complete assessment. Patient lives at home with his where he is independent with his care. At discharge patient would like to go to inpatient rehab at [facility], this is where his works. CM discussed home health, rehab services, and medical equipment. Patient has a walker, wheelchair, shower chair, BSC at home. He had a CPM, but did not work and the DME company will deliver another one when he is discharged. Patient denied known discharge needs at this time. CM will continue to follow and will assist as needed with dc plans/needs. Medicaid Biller: Piedad Sifuentes DCPIA - Discharge Planning Initial Assessment Updated by [email or web address]: Piedad Sifuentes on 11/15/18 2:04 pm * Is the patient Alert and Oriented? Yes * How many steps to enter\exit or inside your home? * PCP ADAM * Pharmacy [facility] * Preadmission Environment Home with Family * ADLs Independent * Equipment Bedside Commode Cane Rolling Walker Shower Chair Walker Wheelchair * List name and contact numbers for known caregivers / representatives who currently or will assist patient after discharge: JHOANA ( ) [phone] * Verbal permission to speak to the caregivers and representatives has been obtained from the patient. Yes * Community resources currently utilized None * Additional services required to return to the preadmission environment? Yes * Can the patient safely return to the preadmission environment? No * Has this patient been hospitalized within the prior 30 days at any hospital? No Last DP export: 11/20/18 11:01 a Patient Name: ADILENE RHOADES Page 87407 at 1202 All edits/amendments must be made on the electronic document DICTATION DATE: 11/24/18 120 ELECTRONIC RESOURCES LIBRARIAN: HARSHIL 11/24/18 1202 RPT#: [id number] DC DATE:11/20/18 STATUS: DIS IN [facility] [address] [place] [address] END OF REPORT
== END 2018-11-20 13:23 | DRG 470 ==
LOC: D.SDCHOLD 10-30 10:00 → D.MS 11-13 10:00 → D.SDCHOLD 11-13 10:00 → D.MS 11-13 15:05
PROVIDERS: Family Medicine; Internal Medicine Hematology & Oncology; ADMIT Orthopaedic Surgery; ATTEND Orthopaedic Surgery
PROC: 0SRC0J9 Replacement of Right Knee Joint with Synthetic Substitute, Cemented, Open Approach (ICD-10-PCS; principal; 2018-11-13 12:00)
DX: M17.11 Unilateral primary osteoarthritis, right knee (principal); E72.12 Methylenetetrahydrofolate reductase deficiency; D62 Acute posthemorrhagic anemia; M21.061 Valgus deformity, not elsewhere classified, right knee; E11.9 Type 2 diabetes mellitus without complications; I10 Essential (primary) hypertension; J45.909 Unspecified asthma, uncomplicated; I25.10 Atherosclerotic heart disease of native coronary artery without angina pectoris; D64.9 Anemia, unspecified; M21.851 Other specified acquired deformities of right thigh; D75.82 Heparin induced thrombocytopenia (HIT)

== ENCOUNTER → 2019-01-31 15:04 | Outpatient (CLI) | payer BC ==
[2018-11-14 14:49] VITALS: BMI 33.1
[~2019-01-31 15:04] MED LIST changes: +ARIXTRA10 MG/0.8 SC; +HYDROCHLOROTHIA25 MG PO; +LOVENOX30 MG/0.3 SC; +VITAMIN D31000 UNI2 PO; +oxyCODONE IR PO
== END | disposition home or self-care (01) ==
LOC: D.LABREF 15:04
PROVIDERS: ATTEND Orthopaedic Surgery
DX: M17.12 Unilateral primary osteoarthritis, left knee (principal)

== ENCOUNTER 2019-02-01 13:57 | Inpatient (IN) | payer BC ==
[~2019-02-01] VITALS: Ht 172.7 cm; Wt 97.3 kg
[2019-03-08] MEDS ORDERED: ARIXTRA10 MG/0.8 SC (09:40)
[2019-03-08] MEDS ORDERED: ELEMENTAL IRON PO (09:44)
[2019-03-08] MEDS ORDERED: HYDROCODON-ACE1 EA10 PO (09:45)
[2019-03-08] MEDS ORDERED: FEXOFENADINE H180 MG PO (09:45)
[2019-03-08 10:39] LABS: APPEARANCE CLEAR (CLEAR); BILIRUBIN NEGATIVE (NEGATIVE); COLOR YELLOW (YELLOW); GLUCOSE NEGATIVE (NEGATIVE); KETONE NEGATIVE (NEGATIVE); NITRITE NEGATIVE (NEGATIVE); PROTEIN NEGATIVE (NEGATIVE)
[2019-03-08 10:47] LABS: APTT 32.1 SECONDS (22.8-39.4); CALCIUM 9.2 mg/dL (8.5-10.1); CARBON DIOXIDE 31.2 mmol/L (21.0-32.0); CREATININE - SERUM 1.4 mg/dL (0.6-1.3); INR 1.09 (0.85-1.17); POTASSIUM - SERUM 4.2 mmol/L (3.5-5.1); PROTIME 13.6 SECONDS (11.6-15.0)
[2019-03-08 11:33] LABS: BASOPHILS 0.4 % (0-2); EOSINOPHILS 1.8 % (0-7); HEMATOCRIT 46.3 % (42.0-54.0); HEMOGLOBIN 15.1 g/dL (13.5-17.5); IMMATURE GRANULOCYTES 0.1 % (0-5); LYMPHOCYTES 36.9 % (15-50); MCH 28.7 pg (26.0-34.0); MCHC 32.6 g/dL (31.0-37.0); MEAN PLATELET VOLUME 8.9 fL (7.4-10.4); MONOCYTES 8.3 % (2-11); NEUTROPHILS 52.5 % (40-80); PLATELET COUNT 254 10x3/uL (130-400); RBC 5.26 10x6/uL (4.20-6.10); WBC 7.1 10x3/uL (4.8-10.8)
[2019-03-12 09:43] VITALS: BP 132/75; BMI 32.7
[2019-03-12 16:10] VITALS: BP 132/82
--- NOTE | 2019-03-12 16:17 | NUR ---
RECEIVED PATIENT FROM RECOVERY. C/O PAIN TO LEFT KNEE. NO S/S/ ACUTE DISTRESS NOTED. VITALS STABLE. ON 3L O2, NC O2 SAT @ 96%. LEFT TOTAL KNEE, WOUND VAC TO SITE. DRESSING C/D/I. ALERT AND ORIENTED. DENIES ANY NEEDS AT THIS TIME. CALL LIGHT IN REACH. AT BEDSIDE. WILL CONTINUE TO MONITOR.
[2019-03-12 16:29] VITALS: BP 132/82; Ht 172.7 cm; Wt 97.3 kg
--- NOTE | 2019-03-12 18:48 | NUR ---
ALERT AND ORIENTED, RESTING IN BED. NO C/O PAIN. NO S/S OF ACUTE DISTRESS NOTED. DENIES ANY NEEDS AT THIS TIME. CALL LIGHT IN REACH. WILL CONTINUE TO MONITOR.
[2019-03-12 19:30] VITALS: BP 115/86
--- NOTE | 2019-03-12 19:35 | NUR ---
UP IN BED WITH CPM ON. COMPLAINTS OF PAIN. WILL GIVE MEDICATION ACCORDINGLY. NO S/S OF ANY ACUTE DISTRESS.
[2019-03-13 00:59] VITALS: BP 121/75
[2019-03-13 05:34] VITALS: BP 136/74
[2019-03-13 06:50] LABS: BASOPHILS 0.2 % (0-2); EOSINOPHILS 0.5 % (0-7); HEMATOCRIT 33.8 % (42.0-54.0); IMMATURE GRANULOCYTES 0.2 % (0-5); LYMPHOCYTES 18.5 % (15-50); MCH 28.9 pg (26.0-34.0); MCHC 32.5 g/dL (31.0-37.0); MCV 88.7 fL (80.0-100.0); MEAN PLATELET VOLUME 8.7 fL (7.4-10.4); MONOCYTES 14.1 % (2-11); NEUTROPHILS 66.5 % (40-80); RBC 3.81 10x6/uL (4.20-6.10); RDW 17.2 % (11.5-14.5)
--- NOTE | 2019-03-13 06:55 | NUR ---
ALERT AND ORIENTED, RESTING IN BED WITH EYES OPEN. NO C/O PAIN. NO S/S OF ACUTE DISTRESS NOTED. POD #1 LEFT KNEE, DRESSING C/D/I. WOUND VAC TO LEFT KNEE, NO DRAINAGE. ON CPM. IV TO RIGHT FOREARM, 1/2 NS INFUSING @ 100ML/HR. SITE PATENT WITHOUT REDNESS OR SWELLING. DENIES ANY NEEDS AT THIS TIME. CALL LIGHT IN REACH. WILL CONTINUE TO MONITOR.
[2019-03-13 07:01] LABS: PLATELET COUNT 180 10x3/uL (130-400)
[2019-03-13 07:28] LABS: ANION GAP 11.5 mmol/L (8-16); CALCIUM 7.6 mg/dL (8.5-10.1); CARBON DIOXIDE 28.6 mmol/L (21.0-32.0); CREATININE - SERUM 1.1 mg/dL (0.6-1.3); POTASSIUM - SERUM 5.1 mmol/L (3.5-5.1)
--- NOTE | 2019-03-13 08:05 | OP ---
PATIENT NAME: ADILENE RHOADES MEDICAL RECORD: [id number] :[birth year] LOCATION:[address] [id number] ADMISSION DATE:03/12/19 SURGEON: NATALIO IBRAHIM DO DATE OF OPERATION: 03/12/2019 PROCEDURE PERFORMED: Left total knee arthroplasty. PREOPERATIVE DIAGNOSIS: Left knee osteoarthritis with severe valgus deformity. PREOPERATIVE DIAGNOSIS: Left knee osteoarthritis with severe valgus deformity. INDICATIONS: The patient is a 63-year-old male who had his right knee replaced several months ago and he wanted the left knee done as he has a severe valgus deformity and it had been bothering him for years and it is hard to deal with the pain and affecting his activities of daily living. He was informed of the risks including infection, bleeding, damage to nerves and vessels, especially the peroneal nerve due to the severe valgus deformity that we had to correct and blood clots as he has a history of them and even , fracture, need for further surgery, failure of implant, was aware of all those risks and signed the consent. SURGEON: Natalio Ibrahim DO PATTERN DESIGNER: By Lei Villalobos, certified surgical certified surgical tech/first assistant. DESCRIPTION OF THE PROCEDURE: The patient received a block by anesthesia in the preoperative area and was given 2 grams Ancef and 80 mg gentamicin preoperatively, was taken to the operative suite, laid in the supine position, given a general anesthetic and LMA was placed. The left lower extremity was then prepped and draped in sterile fashion. A timeout was performed and everybody was in agreement as to the correct side, site, patient, and procedure and marked out the incision over the anterior knee and covered the knee in Ioban. The #10 blade scalpel was then used with careful dissection down to the capsule. Medial parapatellar approach was used to go through the capsule. Once that was done, that part of the fat pad was removed. He had a large bone fragment on the inner notch. This was removed as well. The femoral canal was then entered after the patella was milled down for a prosthesis and then the femoral canal was entered and distal femur was cut at 4 degrees valgus. Due to severe valgus deformity did not do a 5. The proximal tibia was then exposed and severe bone loss in the posterolateral tibial plateau. Once at the tibial plateau, proximal tibia was cut, the knee was brought to extension. Any excess bone was removed. We then cut 2 more off due to the severe deformity to even out the tibia. The menisci were removed. The popliteal tendon was released at that time at the posterolateral aspect to balance the knee better and any bleeding was coagulated with Aquamantys. The knee was then flexed and the femur was measured to be 67.5. PS box was then put on and the post-cut was made. Once that was done, that was removed. The lug holes had been drilled. The trial was put on and floated in the tibia and ranged and marked the rotation and once that was marked, the patella was drilled. The tibia was then exposed and sized to be 75. This was drilled and punched in extra holes in the tibia for cement interdigitation. Cement was mixed after the tibia had been irrigated, placed in the tibia and the implant impacted into place. Excess cement was removed. The femur was impacted on and there was a small gap on the lateral side, just on the distal femur had very OPERATIVE REPORT [id number] ADILENE RHOADES good coverage medially as well as anterior and posteriorly. Some bone fragments were used from the other bone cuts. Cancellous bone packed into the small gap between the distal femur and the implant. Then, the patella was irrigated and cemented on and held into place with a squeezer while the cement dried. Excess cement was removed from that. The knee was then thoroughly irrigated and then povidine-iodine 10% mixture with saline solution was placed in the knee and set for 3 minutes and then irrigated out with more than a liter of normal saline. We then sized and did some more lateral release along the posterolateral corner of the tibia to get a better balance. Once there was satisfactory balance, we put a 16 poly and seemed to fit well with a PS plus bearing. This had good stability medial, lateral and the flexion and extension and the knee was irrigated one more time and then vancomycin and tobramycin powder put in the knee as well as Carmen. The capsule was then closed with #2 Ethibond in girckj-qy-zfkit fashion and the skin was closed with 2-0 Vicryl in inverted interrupted fashion. A ZipLine placed on the knee. The Arthrocare back was put on the knee and wrapped with 6-inch Nolan wrap and ADA hose stockings in the knee. He was then awakened and taken to the recovery in stable condition. Blood loss approximately 300 mL. COMPLICATIONS: None. TRANSINT:[id number] Voice Confirmation ID: [id number] DOCUMENT ID: [id number] NATALIO IBRAHIM DO at 0805 CC: [id number] DICTATION DATE: 03/12/191451 CHIEF DEPUTY: 03/12/19 2326 ADM IN [facility] [id number] [place] [address]
[2019-03-13 08:49] VITALS: BP 97/62
--- NOTE | 2019-03-13 11:50 | NUR ---
Prevena Arthro dressing intact with no air leaks or blockages. No drainage noted in canister. Will continue monitoring.
[2019-03-13 12:46] VITALS: BP 121/52
[2019-03-13 17:03] VITALS: BP 154/78
--- NOTE | 2019-03-13 18:03 | NUR ---
I have reviewed this patient and I concur with the Shift Assessment completed by the Licensed Practical Nurse today this shift.
--- NOTE | 2019-03-13 19:37 | NUR ---
UP IN BED WITH CPM ENGAGED. WOUND VAC SEAL IS INTACT. IV TO RIGHT FOREARM IS PATENT WITH FLUIDS INFUSING PER ORDERS. SHOWS NO S/S OF ANY ACUTE DISTRESS. ABLE TO VOICE ALL NEEDS. WILL NOTE ANY CHANGE.
[2019-03-13 20:00] VITALS: BP 113/54
[2019-03-14] VITALS: BP 100/49
--- NOTE | 2019-03-14 01:30 | NUR ---
I have reviewed this patient and I concur with the Shift Assessment completed by the Licensed Practical Nurse today this shift.
[2019-03-14 04:00] VITALS: BP 93/48
--- NOTE | 2019-03-14 06:14 | NUR ---
PT REQUESTED PAIN MEDS AT 2100 AND 0500, GIVEN PER MAR EACH TIME WITH EFFECTIVE RESULTS. WILL NOTE ANY CHANGE.
[2019-03-14 06:32] LABS: HEMATOCRIT 28.5 % (42.0-54.0); HEMOGLOBIN 9.3 g/dL (13.5-17.5); MCH 28.8 pg (26.0-34.0); MCHC 32.6 g/dL (31.0-37.0); MCV 88.2 fL (80.0-100.0); MEAN PLATELET VOLUME 8.6 fL (7.4-10.4); PLATELET COUNT 171 10x3/uL (130-400); RBC 3.23 10x6/uL (4.20-6.10); RDW 17.2 % (11.5-14.5); WBC 7.4 10x3/uL (4.8-10.8)
[2019-03-14 06:53] LABS: ANION GAP 10.2 mmol/L (8-16); CALCIUM 7.8 mg/dL (8.5-10.1); CARBON DIOXIDE 29.1 mmol/L (21.0-32.0); CREATININE - SERUM 1.2 mg/dL (0.6-1.3)
[2019-03-14 06:56] LABS: POTASSIUM - SERUM 4.3 mmol/L (3.5-5.1)
--- NOTE | 2019-03-14 07:00 | NUR ---
ALERT AND ORIENTED, RESTING IN BED WITH EYES OPEN. NO C/O PAIN. NO S/S OF ACUTE DISTRESS NOTED. POD #2 LEFT KNEE, DRESSING C/D/I AND WOUND VAC TO KNEE, NO DRAINAGE. ON CPM. IV TO RIGHT HAND, 1/2 NS @ 50ML/HR. SITE PATENT WITHOUT REDNESS OR SWELLING. ACHS. DENIES ANY NEEDS AT THIS TIME. CALL LIGHT IN REACH. WILL CONTINUE TO MONITOR.
[2019-03-14 08:00] VITALS: BP 88/51
[2019-03-14 10:00] LABS: EOSINOPHILS 1 % (0-7); HYPOCHROMASIA OCC; LYMPHOCYTES 20 % (15-50); MONOCYTES 13 % (2-11); NEUTROPHILS 65 % (40-80); PLATELET ESTIMATE NORMAL; ROULEAUX OCC
--- NOTE | 2019-03-14 10:32 | NUR ---
I have reviewed this patient and I concur with the Shift Assessment completed by the Licensed Practical Nurse today this shift.
[2019-03-14 12:00] VITALS: BP 117/46
--- NOTE | 2019-03-14 14:47 | NUR ---
OT NOTE: DOS 03/13/19 PT COMPLETED POSITIONING OF PATIENT TO DECREASE PAIN WITH MOD A. PT COMPLETED UE AROM AX. THANK YOU,SUMA COLMENARES
--- NOTE | 2019-03-14 15:27 | NUR ---
OT NOTE: PT DOING WELL TODAY. CONT TO C/O PAIN 11/03. BED MOB WITH EXTENDED TIME AND MIN ASSIST TO MOVE L LE. EOB SITTING WITH GOOD BALANCE. AMB WITH WALKER, IV, WOUND VAC AND CHAIR BEHIND PT X APPROX 10-15 FT. PT NOT WT BEARING THROUGH L LE. UPPER BODY GROOMING AND FEEDING WITH SET UP. TOTAL ASSIST TO SOURAV SOCKS AND ADJUST ADA BURAK REED,O TR/L
--- NOTE | 2019-03-14 15:36 | MORECARE ---
CASE MANAGEMENT DISCHARGE SUMMARY PATIENT: ADILENE RHOADES ISAIAH UNIT: [id number] ADM DATE: 03/12/19 AGE: 63 : 57 SEX: M ROOM/BED: D.2209 AUTHOR: SILAS AIKEN PHYSICIAN: REFERRING PHYSICIAN: APOLINAR IBRAHIM DO DATE OF SERVICE: 03/14/19 Discharge Plan Patient Name: ADILENE RHOADES [facility] [facility] 1955 Planned Disposition: Inpatient Rehab Anticipated Discharge Date: Discharge Date: Expected LOS: Initial Reviewer: [email or web address] Initial Review Date: 03/12/2019 Generated: 03/14/19 4:36 pm DCPIA - Discharge Planning Initial Assessment Updated by [email or web address]: Piedad Sifuentes on 03/14/19 3:30 pm * Is the patient Alert and Oriented? Yes * How many steps to enter\exit or inside your home? 4 STEPS * PCP MIKE CUT[place]ER [place] * Pharmacy [facility] * Preadmission Environment Home with Family * ADLs Independent * Equipment Bedside Commode Elevated [place] Seat Rolling Walker Shower Chair * List name and contact numbers for known caregivers / representatives who currently or will assist patient after discharge: JHOANA () [phone] * Verbal permission to speak to the caregivers and representatives has been obtained from the patient. N/A * Community resources currently utilized None * Additional services required to return to the preadmission environment? Yes * Can the patient safely return to the preadmission environment? Yes * Has this patient been hospitalized within the prior 30 days at any hospital? No Patient Name: ADILENE RHOADES Page [id number] at 1536 All edits/amendments must be made on the electronic document DICTATION DATE: 03/14/191535 ROUGE MIXER: HARSHIL 03/14/19 153 RPT#: [id number] DC DATE: STATUS: ADM IN [facility] [address] [place] [address] END OF REPORT
--- NOTE | 2019-03-14 15:47 | MORECARE ---
CASE MANAGEMENT DISCHARGE SUMMARY PATIENT: ADILENE RHOADES ISAIAH UNIT: [id number] ADM DATE: 03/12/19 AGE: 63 : 57 SEX: M ROOM/BED: D.2209 AUTHOR: ATTILADOC PHYSICIAN: REFERRING PHYSICIAN: APOLINAR IBRAHIM DO DATE OF SERVICE: 03/14/19 Discharge Plan Patient Name: ADILENE RHOADES Facility: [facility]:[place] : 1955 Planned Disposition: Inpatient Rehab Anticipated Discharge Date: Discharge Date: Expected LOS: Initial Reviewer: [email or web address] Initial Review Date: 03/12/2019 Generated: 03/14/19 4:47 pm Comments DCP- Discharge Planning Updated by [email or web address]: Piedad Sifuentes on 03/14/19 2:[address] Patient Name: ADILENE RHOADES Admission Status: Elective Accout number: [id number] Admission Date: 03-12-2019 : 1955 Admission Diagnosis: Attending: APOLINAR IBRAHIM Current LOS: 2 Anticipated DC Date: Planned Disposition: Inpatient Rehab Primary Insurance: [employer] [facility] Discharge Planning Comments: CM met with patient to complete initial dc planning assessment. CM educated patient on the CM role and verbal consent given by patient to complete assessment. Patient lives at home with his where he is independent with his care. At discharge patient plans to go to inpatient rehab at [facility] and feels this is a safe discharge. CM discussed rehab services, and medical equipment. he stated that he has everything he needs for DME from his other knee surgery. ERIC signed and placed in chart. I did receive a call from Monica at [facility] that he has been approved for start of service tomorrow 03/15/19. His will pick him up at 0900 tomorrow morning. Patient denied known discharge needs at this time. CM will continue to follow and will assist as needed with dc plans/needs Graphic Engineer: Piedad Sifuentes DCPIA - Discharge Planning Initial Assessment Updated by [email or web address]: Piedad Sifuentes on 03/14/19 3:30 pm * Is the patient Alert and Oriented? Yes * How many steps to enter\exit or inside your home? 4 STEPS * PCP MIKE MORALES * Pharmacy [facility] * Preadmission Environment Home with Family * ADLs Independent * Equipment Bedside Commode Elevated Tol[place] Seat Rolling Walker Shower Chair * List name and contact numbers for known caregivers / representatives who currently or will assist patient after discharge: JHOANA () [phone] * Verbal permission to speak to the caregivers and representatives has been obtained from the patient. N/A * Community resources currently utilized None * Additional services required to return to the preadmission environment? Yes * Can the patient safely return to the preadmission environment? Yes * Has this patient been hospitalized within the prior 30 days at any hospital? No Coverage Notice Reviewer: [email or web address] Mariah Sifuentes Notice Issued Date-Time: 03/14/2019 11:55 Notice Type: Patient Choice Letter Notice Delivered To: Patient Relationship to Patient: Percolator Operator Name: Delivery Method: HAND - Hand Delivered Sarah Days: Prior Verbal Notification: Recipient Understood Notice: Yes Recipient Signature: Yes Med Rec Note Co-signed by Attending: Coverage Notice Comment: eric for saline inpatinet rehab Last DP export: 03/14/19 2:36 Patient Name: ADILENE RHOADES Page [id number] at 1547 All edits/amendments must be made on the electronic document DICTATION DATE: 03/14/191545 RUBBER TURNER: HARSHIL 03/14/191545 RPT#: [id number] DC DATE: STATUS: ADM IN [facility] [address] [place] [address] END OF REPORT
[2019-03-14 17:04] VITALS: BP 108/62
--- NOTE | 2019-03-14 18:50 | NUR ---
ALERT AND ORIENTED, RESTING IN BED WITH EYES OPEN. NO C/O PAIN. NO S/S OF ACUTE DISTRESS NOTED. DENIES ANY NEEDS AT THIS TIME. CALL LIGHT IN REACH. WILL CONTINUE TO MONITOR.
[2019-03-14 20:00] VITALS: BP 130/64
--- NOTE | 2019-03-14 21:30 | NUR ---
A/O WITH NO SIGNS OF DISTRESS. IV TO THE LT FOREARM WITH NO REDNESS OR SWELLING NOTED. WOUND VAC NOTED TO LT LEG, PULSE PALP. MIGUEL ÁNGEL ALARM ON. REPORTS PAIN OF 10/10. PRN MEDS ADMIN. DENIES NO OTHER NEEDS AT THIS TIME. CONTINUE PLAN OF CARE.
[2019-03-15] VITALS: BP 115/63
[2019-03-15 04:00] VITALS: BP 123/55
[2019-03-15 06:31] LABS: BASOPHILS 0.1 % (0-2); EOSINOPHILS 1.3 % (0-7); HEMATOCRIT 23.8 % (42.0-54.0); HEMOGLOBIN 8.1 g/dL (13.5-17.5); IMMATURE GRANULOCYTES 0.3 % (0-5); MCH 30.2 pg (26.0-34.0); MCV 88.8 fL (80.0-100.0); MONOCYTES 11.3 % (2-11); PLATELET COUNT 147 10x3/uL (130-400); RBC 2.68 10x6/uL (4.20-6.10); RDW 17.2 % (11.5-14.5); WBC 6.9 10x3/uL (4.8-10.8)
[2019-03-15 06:42] LABS: CALC OSMOLALITY 272 mosm/kg (275-300); CALCIUM 8.3 mg/dL (8.5-10.1); CARBON DIOXIDE 30.2 mmol/L (21.0-32.0); CHLORIDE - SERUM 99 mmol/L (98-107); GLUCOSE 118 mg/dL (74-106); POTASSIUM - SERUM 3.3 mmol/L (3.5-5.1); SODIUM 136 mmol/L (136-145); UREA NITROGEN 13 mg/dL (7-18); eGFR NON AFRICAN AMERICAN 80 mL/min (90-120)
--- NOTE | 2019-03-15 06:43 | NUR ---
REFUSED CPM STATING THAT HE DIDN'T WANT TO GO THROUGH THE PAIN. EXPLAINED THAT HE NEEDED IT SO THAT HIS LEG WILL NOT GET STIFF. HE STATED THAT HE DIDN'T NEED IT AND HIS LEG WILL NO GET STIFF. DISCUSSED GIVING PAIN MEDS PRIOR TO APPLICATION. HE THEN AGREED TO CMP. ALSO PROVIDED BED CHANGE. DENIED NO FURTHER NEEDS. CONTINUE PLAN OF CARE.
--- NOTE | 2019-03-15 08:00 | NUR ---
IV REMOVED WITH CATH TIP INTACT. PATIENT BEING DC'D. PROVENA REMOVED BY DR. IBRAHIM. NEW DRESSING PLACED.
[2019-03-15] MEDS ORDERED: FERROUS SULFAT325 MG PO (08:28)
[2019-03-15] MEDS ORDERED: OXYCODONE HCL5 M1 PO (08:28)
[2019-03-15] MEDS ORDERED: KLOR-CON M2020 MEQ PO (08:28)
[2019-03-15] MEDS ORDERED: KEFLEX500 MG PO (08:29)
--- NOTE | 2019-03-15 09:00 | NUR ---
PATIENT AND RECIEVED DC INSTRUCTIONS AT THIS TIME. VERBALIZED UNDERSTANDING. NO QUESTIONS AT THIS TIME. EXPLAINED TO GIVE PRESCRIPTONS AND PAPERS TO NURSE AT REHAB. VERBALIZED UNDERSTANDING. WAITING FOR WC FOR DC.
[2019-03-15 09:02] VITALS: BP 106/55
--- NOTE | 2019-03-15 09:56 | NUR ---
REPORT CALLED TO [facility] AT THIS TIME.
--- NOTE | 2019-03-15 12:59 | MORECARE ---
CASE MANAGEMENT DISCHARGE SUMMARY PATIENT: ADILENE RHOADES ISAIAH UNIT: [id number] ADM DATE: 03/12/19 AGE: 63 : 57 SEX: M ROOM/BED: D.2209 AUTHOR: ATTILADOC PHYSICIAN: REFERRING PHYSICIAN: APOLINAR IBRAHIM DO DATE OF SERVICE: 03/15/19 Discharge Plan Patient Name: ADILENE RHOADES Facility: [facility]:[place] : 1955 Planned Disposition: Inpatient Rehab Anticipated Discharge Date: Discharge Date: 03/15/2019 Expected LOS: Initial Reviewer: [email or web address] Initial Review Date: 03/12/2019 Generated: 03/15/19 1:58 pm Comments DCP- Discharge Planning Updated by [email or web address]: Piedad Sifuentes on 03/15/19 11:[address] LATE ENTRY PATIENT DISCHARGING TO INPATIENT REHAB TODAY AT [facility] HIS WILL TRANSPORT HIM DCP- Discharge Planning Updated by [email or web address]: Piedad Sifuentes on 03/14/19 2:[address] Patient Name: ADILENE RHOADES Admission Status: Elective Accout number: [id number] Admission Date: 03-12-2019 : 1955 Admission Diagnosis: Attending: APOLINAR IBRAHIM Current LOS: 2 Anticipated DC Date: Planned Disposition: Inpatient Rehab [facility] Discharge Planning Comments: CM met with patient to complete initial dc planning assessment. CM educated patient on the CM role and verbal consent given by patient to complete assessment. Patient lives at home with his where he is independent with his care. At discharge patient plans to go to inpatient rehab at [facility] and feels this is a safe discharge. CM discussed rehab services, and medical equipment. he stated that he has everything he needs for DME from his other knee surgery. ERIC signed and placed in chart. I did receive a call from Monica at [facility] that he has been approved for start of service tomorrow 03/15/19. His will pick him up at 0900 tomorrow morning. Patient denied known discharge needs at this time. CM will continue to follow and will assist as needed with dc plans/needs Restaurant Shift Supervisor: Piedad Sifuentes DCPIA - Discharge Planning Initial Assessment Updated by [email or web address]: Piedad Sifuentes on 03/14/19 3:30 pm * Is the patient Alert and Oriented? Yes * How many steps to enter\exit or inside your home? 4 STEPS * PCP MIKE MORALES * Pharmacy [facility] * Preadmission Environment Home with Family * ADLs Independent * Equipment Bedside Commode Elevated [place] Seat Rolling Walker Shower Chair * List name and contact numbers for known caregivers / representatives who currently or will assist patient after discharge: JHOANA () [phone] * Verbal permission to speak to the caregivers and representatives has been obtained from the patient. N/A * Community resources currently utilized None * Additional services required to return to the preadmission environment? Yes * Can the patient safely return to the preadmission environment? Yes * Has this patient been hospitalized within the prior 30 days at any hospital? No Coverage Notice Reviewer: [id number] - Piedad Sifuentes Notice Issued Date-Time: 03/14/2019 11:55 Notice Type: Patient Choice Letter Notice Delivered To: Patient Relationship to Patient: Film Archivist Name: Delivery Method: HAND - Hand Delivered Sarah Days: Prior Verbal Notification: Recipient Understood Notice: Yes Recipient Signature: Yes Med Rec Note Co-signed by Attending: Coverage Notice Comment: eric for saline inpatinet rehab Last DP export: 03/14/19 2:47 Patient Name: ADILENE RHOADES Page [id number] at 1259 All edits/amendments must be made on the electronic document DICTATION DATE: 03/15/19 1258 VENEER PATCHER: HARSHIL 03/15/19 1258 RPT#: [id number] DC DATE:03/15/19 STATUS: DIS IN [facility] [address] [place] [address] END OF REPORT
--- NOTE | 2019-03-15 13:00 | NUR ---
OT NOTE: PT COMPLETED SUPINE TO SIT WITH MIN A TO BRING LEGS OVER SIDE. PT COMPLETED ADL MOB WITH RW WITH CGA-MIN A. PT STATED HE IS GOING TO [facility] TODAY. PT COMPLETED FACE WASH WITH SETUP. PT EXHIBITED INCREASED FUNCTIONAL INDEPENDENCE AND DECREASED PAIN LEVEL WITH ACTIVITY. [phone] THANK YOU, SUMA COLMENARES/Geni
--- NOTE | 2019-03-18 12:23 | MORECARE ---
CASE MANAGEMENT DISCHARGE SUMMARY PATIENT: ADILENE RHOADES ISAIAH UNIT: [id number] ADM DATE: 03/12/19 AGE: 63 : 57 SEX: M ROOM/BED: D.2209 AUTHOR: ATTILADOC PHYSICIAN: REFERRING PHYSICIAN: APOLINAR IBRAHIM DO DATE OF SERVICE: 03/18/19 Discharge Plan Patient Name: ADILENE RHOADES Facility: [facility]:[place] : 1955 Planned Disposition: Inpatient Rehab Anticipated Discharge Date: Discharge Date: 03/15/2019 Expected LOS: Initial Reviewer: [email or web address] Initial Review Date: 03/12/2019 Generated: 03/18/19 1:22 pm Comments DCP- Discharge Planning Updated by [email or web address]: Piedad Sifuentes on 03/15/19 11:[address] LATE ENTRY PATIENT DISCHARGING TO INPATIENT REHAB TODAY AT [facility] HIS WILL TRANSPORT HIM DCP- Discharge Planning Updated by [email or web address]: Piedad Sifuentes on 03/14/19 2:[address] Patient Name: ADILENE RHOADES Admission Status: Elective Accout number: [id number] Admission Date: 03-12-2019 : 1955 Admission Diagnosis: Attending: APOLINAR IBRAHIM Current LOS: 2 Anticipated DC Date: Planned Disposition: Inpatient Rehab Primary Insurance: [facility] Discharge Planning Comments: CM met with patient to complete initial dc planning assessment. CM educated patient on the CM role and verbal consent given by patient to complete assessment. Patient lives at home with his where he is independent with his care. At discharge patient plans to go to inpatient rehab at [facility] and feels this is a safe discharge. CM discussed rehab services, and medical equipment. he stated that he has everything he needs for DME from his other knee surgery. ERIC signed and placed in chart. I did receive a call from Monica at [facility] that he has been approved for start of service tomorrow 03/15/19. His will pick him up at 0900 tomorrow morning. Patient denied known discharge needs at this time. CM will continue to follow and will assist as needed with dc plans/needs Jar Filler: Piedad Sifuentes DCPIA - Discharge Planning Initial Assessment Updated by [email or web address]: Piedad Sifuentes on 03/14/19 3:30 pm * Is the patient Alert and Oriented? Yes * How many steps to enter\exit or inside your home? 4 STEPS * PCP MIKE MORALES * Pharmacy [facility] * Preadmission Environment Home with Family * ADLs Independent * Equipment Bedside Commode Elevated [place] Seat Rolling Walker Shower Chair * List name and contact numbers for known caregivers / representatives who currently or will assist patient after discharge: JHOANA () [phone] * Verbal permission to speak to the caregivers and representatives has been obtained from the patient. N/A * Community resources currently utilized None * Additional services required to return to the preadmission environment? Yes * Can the patient safely return to the preadmission environment? Yes * Has this patient been hospitalized within the prior 30 days at any hospital? No Coverage Notice Reviewer: [id number] - Piedad Sifuentes Notice Issued Date-Time: 03/14/2019 11:55 Notice Type: Patient Choice Letter Notice Delivered To: Patient Relationship to Patient: Hole Digger Truck Driver Name: Delivery Method: HAND - Hand Delivered Sarah Days: Prior Verbal Notification: Recipient Understood Notice: Yes Recipient Signature: Yes Med Rec Note Co-signed by Attending: Coverage Notice Comment: eric for saline inpatinet rehab Last DP export: 03/15/19 11:59 Patient Name: ADILENE RHOADES Page [id number] at 1223 All edits/amendments must be made on the electronic document DICTATION DATE: 03/18/19 1222 SLEEVE TURNER: HARSHIL 03/18/19 1222 RPT#: [id number] DC DATE:03/15/19 STATUS: DIS IN [facility] [address] [place] [address] END OF REPORT
== END 2019-03-15 10:13 | DRG 470 ==
LOC: D.SDCHOLD 03-12 09:25 → D.MS 03-12 09:25 → D.SDCHOLD 03-12 10:00 → D.MS 03-12 15:18
PROVIDERS: Internal Medicine Nephrology; ADMIT Orthopaedic Surgery; ATTEND Orthopaedic Surgery
PROC: 0SRD0J9 Replacement of Left Knee Joint with Synthetic Substitute, Cemented, Open Approach (ICD-10-PCS; principal; 2019-03-12 11:30)
DX: M17.12 Unilateral primary osteoarthritis, left knee (principal); E72.12 Methylenetetrahydrofolate reductase deficiency; D62 Acute posthemorrhagic anemia; M21.062 Valgus deformity, not elsewhere classified, left knee; J45.909 Unspecified asthma, uncomplicated; G47.33 Obstructive sleep apnea (adult) (pediatric); I10 Essential (primary) hypertension; I25.10 Atherosclerotic heart disease of native coronary artery without angina pectoris; K21.9 Gastro-esophageal reflux disease without esophagitis; F41.8 Other specified anxiety disorders; E11.40 Type 2 diabetes mellitus with diabetic neuropathy, unspecified

== ENCOUNTER → 2020-09-07 09:18 | Outpatient (CLI) | payer BC ==
[2019-03-12 16:29] VITALS: BMI 32.6
[~2020-09-07 09:18] MED LIST changes: +ELEMENTAL IRON PO; +FERROUS SULFAT325 MG PO; +FEXOFENADINE H180 MG PO; +KEFLEX500 MG PO; +KLOR-CON M2020 MEQ PO; +OXYCODONE HCL5 M1 PO
== END | disposition home or self-care (01) ==
LOC: D.US 09:18
PROVIDERS: ATTEND Internal Medicine Hematology & Oncology
DX: I24.0 Acute coronary thrombosis not resulting in myocardial infarction (principal); I26.99 Other pulmonary embolism without acute cor pulmonale; D75.82 Heparin induced thrombocytopenia (HIT)